=== PATIENT | male | born 1985 | race Caucasian/White ===

== ENCOUNTER 2020-12-23 16:04 | Outpatient (REF) | payer OTHER, SELFPAY | END 2020-12-23 16:05 | disposition home or self-care (01) | LOC: HO.LAB 16:04 | PROVIDERS: Visit Provider Hospitalist | DX: Z20.822 Contact with and (suspected) exposure to COVID-19 (principal) | CPT/HCPCS: U0003; U0005 ==

== ENCOUNTER 2020-12-27 11:06 | Emergency (ER) | payer OTHER, SELFPAY ==
--- NOTE | ~2020-12-27 | XR_ITS ---
EXAMINATION: XR CHEST CLINICAL INFORMATION: Covid positive COMPARISON: None TECHNIQUE: AP portable view of the chest was obtained. FINDINGS: There is a small density seen at the left base. There is obscuration of the right heart border which may be related to fat pad or parenchymal disease. No definite confluent pneumonitis is appreciated. No pneumothorax or pleural effusion. Heart upper limits of normal in size. No evidence of pulmonary edema. XR/XR chest 1V IMPRESSION: No significant confluent parenchymal disease identified. Obscuration of the right heart border as described which may be related to fat pad or region of disease. Small density seen at the left lung base.
[2020-12-27 11:33] VITALS: BP 112/77; PULSE 100; RESP 22; TEMP 37.4; O2SAT 94; BMI 38.7
--- NOTE | 2020-12-27 11:40 | ED.SOB ---
HPI - SOB/Dyspnea General Chief Complaint: Dyspnea Stated Complaint: + covid, diff breathing, chest discomfort Time Seen by Provider: 12/27/20 11:40 Source: patient Mode of arrival: ambulatory Limitations: no limitations History of Present Illness HPI Narrative: 7 days ago felt like he had the flu, he developed diarrhea, test on Wednesday, positive on Wednesday. Not sleeping, decreased urine output. Now vomiting. Low grade fever. Not vaccinated. MD elicited complaint: cough Onset (ago): week(s) Context: recent illness Timing: constant Severity: mild Associated symptoms: fever, cough and nausea/vomiting Related Data Home Medications Medication Instructions Recorded Confirmed clonazepam 1 mg tablet 1 mg PO TID PRN 12/23/20 lamotrigine 25 mg tablet 0 mg PO 12/23/20 olanzapine 15 mg tablet 15 mg PO BEDTIME 12/23/20 oxcarbazepine 150 mg tablet 0 mg PO 12/23/20 oxcarbazepine 300 mg tablet 300 mg PO TID 12/23/20 perphenazine 8 mg tablet 8 mg PO BID 12/23/20 prazosin 5 mg capsule 10 mg PO BEDTIME 12/23/20 sertraline 100 mg tablet 200 mg PO QAM 12/23/20 zolpidem 10 mg tablet 10 mg PO BEDTIME PRN 12/23/20 zolpidem 12.5 mg tablet,extended 12.5 mg PO BEDTIME PRN 12/23/20 release,multiphase Previous Rx's Medication Instructions Recorded ondansetron HCl 4 mg tablet 4 mg PO Q8H PRN #10 tab 12/27/20 (Zofran) Allergies Allergy/AdvReac Type Severity Reaction Status Date / Time codeine [CODEINE] Allergy Severe THROAT Unverified 12/23/20 11:55 SWELLING/RASH latex [LATEX] Allergy Intermediate RASH Unverified 12/23/20 11:55 Codeine Sulfate Allergy Severe rash thoat Uncoded 12/23/20 11:55 swelling Latex Allergy Intermediate rash Uncoded 12/23/20 11:55 Review of Systems Constitutional: Constitutional: Reports no additional constitutional complaints Eyes: Eyes: Reports no additional eye complaints ENT: Denies dizziness Cardiovascular: Cardiovascular: Reports no additional cardiovascular complaints Respiratory: Respiratory: Reports as per HPI Gastrointestinal: Gastrointestinal: Reports no additional gastrointestinal complaints Musculoskeletal: Musculoskeletal: Reports no additional musculoskeletal complaints Integumentary/Breasts: Skin/Breast: Denies rash Neurologic: Reports system reviewed and no additional complaints, except as documented, Denies dizziness and Denies Sensory deficit (Neuro) Psychiatric: Psychiatric: Denies anxiety [facility] Past Medical History Medical History (Updated 12/27/20 @ 13:57 by Jcarlos Smith MD) Anxiety Depression Social History Social History Alcohol intake: never Patient Tobacco Use Status: Never used Tobacco Use of substances other than those prescribed or required for medical reasons: No Advance Directives: No Advance Directives Information Provided: Yes Physical Exam Vital Signs: Vital Signs: Last Vital Signs Temp 99.4 F 12/27/20 11:33 Pulse 100 12/27/20 11:33 Resp 22 H 12/27/20 11:33 BP 112/77 12/27/20 11:33 Pulse Ox 94 12/27/20 11:33 Body Mass Index 38.7 Neuro: Sensory Exam: No Sensory deficit (Neuro) Course Reevaluation(s) Reevaluation #1: patient not hypoxic, xray does not show covid lungs, creatinine 1.65 patient is likely prerenal from not tolerating fluid. After hydration will dc home Time: 13:55 MDM - SOB/Dyspnea Lab Data Result diagrams: 12/27/20 12:40 12/27/20 12:40 Labs: Lab Results 12/27/20 12/27/20 Range/Units 12:40 12:40 WBC 5.2 (4.8-10.8) X10*3/uL RBC 5.18 (4.60-5.80) X10*6/uL Hgb 14.2 (14.0-18.0) g/dl Hct 43.9 (42-52) % MCV 84.7 (80-98) fL MCH 27.4 (27.0-33.0) pg MCHC 32.3 (31.0-36.0) g/dl RDW 13.8 (11.0-16.0) % Plt Count 172 (160-400) X10*3/uL MPV 8.8 L (9.4-12.4) fL Immature Gran % (Auto) 0.4 (0.0-0.4) % Neut % (Auto) 85.9 H (45-73) % Lymph % (Auto) 10.2 L (20-40) % [place] % (Auto) 3.5 (2-11) % Eos % (Auto) 0.0 (0-4) % Baso % (Auto) 0.0 (0-2) % Lymph # (Auto) 0.5 L (1.2-4.9) X10*3/uL [place] # (Auto) 0.2 (0.1-1.2) X10*3/uL Eos # (Auto) 0.0 (0.0-0.4) X10*3/uL Baso # (Auto) 0.0 (0.0-0.2) X10*3/uL Abs Immat Gran (auto) 0.02 (0.00-0.03) X10*3/uL Absolute Neuts (auto) 4.5 (2.0-8.3) X10*3/uL Absolute Nucleated RBC 0.000 (0.0-0.012) X10*3/uL Nucleated RBC % (auto) 0.0 (0.0-0.2) /100WBC Sodium 136 (135-145) mmol/L Potassium 3.6 (3.3-5.1) mmol/L Chloride 105 (96-108) mmol/L Carbon Dioxide 20 L (22-29) mmol/L Anion Gap 15 (12-20) BUN 20 H (9-16) mg/dL Creatinine 1.65 H (0.5-1.4) mg/dL Estim Creat Clear Calc 71.6 Estimated GFR 47 Random Glucose 108 (60-115) mg/dL Calcium 8.0 L (8.4-10.2) mg/dL Imaging Data Chest x-ray: Radiologist's impression: IMPRESSION: No significant confluent parenchymal disease identified. Obscuration of the right heart border as described which may be related to fat pad or region of disease. Small density seen at the left lung base. ? Discharge Plan Discharge Clinical Impression: COVID-19, Prerenal acute renal failure Patient Disposition: Home, Self-Care Instructions: Acute Kidney Injury (DC), COVID-19 (Coronavirus Disease 2019) (ED) Prescriptions: New ondansetron HCl [Zofran] 4 mg tablet 4 mg PO Q8H PRN (Reason: nausea and vomiting) Qty: 10 RF: 0 No Action zolpidem 10 mg tablet 10 mg PO BEDTIME PRN (Reason: insomnia) RF: 0 oxcarbazepine 300 mg tablet 300 mg PO TID RF: 0 prazosin 5 mg capsule 10 mg PO BEDTIME RF: 0 olanzapine 15 mg tablet 15 mg PO BEDTIME RF: 0 clonazepam 1 mg tablet 1 mg PO TID PRNRF: 0 sertraline 100 mg tablet 200 mg PO QAM RF: 0 zolpidem 12.5 mg tablet,ext release multiphase 12.5 mg PO BEDTIME PRNRF: 0 perphenazine 8 mg tablet 8 mg PO BID RF: 0 oxcarbazepine 150 mg tablet 0 mg PO RF: 0 lamotrigine 25 mg tablet 0 mg PO RF: 0
[2020-12-27] MEDS: ondansetron HCL 4 MG/2 ML VIAL IVPUSH (12:23)
[2020-12-27] MEDS: Ibuprofen 800 MG TABLET PO (12:23)
[2020-12-27 12:44] LABS: MANUAL DIFF FLAG NO
--- NOTE | 2020-12-27 12:45 | PC.NURSE ---
patient a&ox3, iv inserted, labs drawn, pt medicated per order, cxr performed, will continue to monitor.
[2020-12-27 12:46] LABS: Hematocrit 43.9 % (42-52); Hemoglobin 14.2 g/dl (14.0-18.0); Imm Gran Abs Auto 0.02 X10*3/uL (0.00-0.03); Imm Gran Pct Auto 0.4 % (0.0-0.4); Lymphocytes Absolute Auto 0.5 X10*3/uL (1.2-4.9); Lymphocytes Percent Auto 10.2 % (20-40); Mean Corpuscular HGB Conc 32.3 g/dl (31.0-36.0); Mean Corpuscular Hemoglobin 27.4 pg (27.0-33.0); Mean Corpuscular Volume 84.7 fL (80-98); Mean Platelet Volume 8.8 fL (9.4-12.4); Monocytes Absolute Auto 0.2 X10*3/uL (0.1-1.2); Monocytes Percent Auto 3.5 % (2-11); Neutrophils Absolute Auto 4.5 X10*3/uL (2.0-8.3); Neutrophils Percent Auto 85.9 % (45-73); Platelet Count 172 X10*3/uL (160-400); Red Blood Count 5.18 X10*6/uL (4.60-5.80); Red Cell Distribution Width 13.8 % (11.0-16.0); White Blood Count 5.2 X10*3/uL (4.8-10.8)
[2020-12-27 13:03] LABS: Anion Gap 15 (12-20); Blood Urea Nitrogen 20 mg/dL (9-16); Carbon Dioxide 20 mmol/L (22-29); Chloride 105 mmol/L (96-108); Creatinine Clr Calc Pharmacy 71.6; Estimated Glomerular Filt Rate 47; Glucose Random 108 mg/dL (60-115); Potassium 3.6 mmol/L (3.3-5.1); Sodium 136 mmol/L (135-145)
[2020-12-27 14:00] VITALS: BP 101/59; PULSE 83; RESP 18; TEMP 37; O2SAT 96
[2020-12-27 16:00] VITALS: BP 111/73; PULSE 85; RESP 18; TEMP 36.9; O2SAT 97
--- NOTE | 2020-12-27 17:32 | PC.NURSE ---
patient aox3, ivf have completed, museum technician nsr 80s, pt states he feels well enough to discharge, vss, will discharge.
== END 2020-12-27 17:43 | disposition home or self-care (01) ==
PROVIDERS: Emergency Provider Emergency Medicine; PCP Physician Assistant
DX: U07.1 COVID-19 (principal); N17.9 Acute kidney failure, unspecified
CPT/HCPCS: 36415; 71045; 80048; 85025; 96361; 96374; 99284; J2405

== ENCOUNTER 2020-12-31 10:22 | Inpatient (IN) | payer OTHER, SELFPAY ==
[2020-12-31] VITALS (11 sets, daily range): BP systolic 109–126; BP diastolic 48–78; PULSE 83–122; RESP 18–49; TEMP 36.5–37.8; O2SAT 82–100; BMI 41.9; BMI 37.3
--- NOTE | ~2020-12-31 | CT_ITS ---
EXAMINATION: CT ANGIOGRAM OF THE CHEST WITH AND WITHOUT CONTRAST (CT PULMONARY ANGIOGRAM FOR PE) CLINICAL INFORMATION: Chest pain and dyspnea COVID positive. COMPARISON: Chest radiograph done earlier today at 11:13 AM. TECHNIQUE: Prior to contrast administration, noncontrast localization images were obtained. Subsequently, multidetector volumetric imaging was performed from the thoracic inlet to below the diaphragms following the administration of 65 mL Omnipaque 350 intravenous contrast. No contrast reaction reported Sagittal, coronal, and MIP oblique sagittal reformatted images were obtained on the CT workstation, uploaded to PACS, and reviewed. This CT examination was performed using dose optimization techniques as appropriate, variously including the following: *Automated exposure control *Adjustment of mA and/or kV according to patient size (this includes techniques or standardized protocols for targeted exams where dose is matched to indication/reason for exam; i.e. extremities or head) *Use of iterative reconstruction technique Total exam dose-length product 402 mGy-cm FINDINGS: QUALITY OF STUDY/CONTRAST BOLUS: Suboptimal. PULMONARY ARTERIES: Evaluation of segmental and subsegmental pulmonary emboli is extremely limited due to motion, overlying airspace opacities and suboptimal timing of the intravenous bolus of contrast. No central pulmonary emboli are identified. THORACIC AORTA: No aneurysm or dissection. LUNG: There are extensive multifocal airspace opacities throughout both lungs. No significant pleural effusions or pneumothorax. The main airways are patent. Assessment of pulmonary nodules or masses is suboptimal given overlying airspace disease. PLEURA: No pleural effusion or pneumothorax. MEDIASTINUM: Cardiomegaly. No pericardial effusion. No evidence of septal bowing or right heart strain. Coronary calcifications. There are several enlarged mediastinal and hilar lymph nodes for example, measuring up to 1.1 cm in maximum short axis in the prevascular space on image 17 of series 6 and 1.3 cm in maximum short axis in the left hilum on image 169 of series 8. CHEST WALL/AXILLA: No axillary or internal mammary lymphadenopathy. OSSEOUS STRUCTURES: No acute or suspicious osseous abnormality. UPPER ABDOMEN: There is decreased attenuation of liver parenchyma suggesting hepatic steatosis. There is a small hiatal hernia. No reflux of contrast into the hepatic veins to suggest elevated right heart pressures. CT/CT angio chest PE protocol IMPRESSION: As above, evaluation of pulmonary emboli is significantly limited. However, accounting for these limitations, no central pulmonary emboli are identified. There are extensive multifocal airspace opacities, worrisome for multifocal pneumonia. Mediastinal and hilar lymphadenopathy is likely reactive. Hepatic steatosis. VTE: indeterminate
--- NOTE | ~2020-12-31 | XR_ITS ---
EXAMINATION: XR CHEST CLINICAL INFORMATION: Dyspnea. COMPARISON: Chest radiograph dated from 12/27/2020. TECHNIQUE: AP view of the chest was obtained. FINDINGS: There are multiple new patchy airspace opacities throughout both lungs. No pleural effusion or pneumothorax. Unchanged appearance of the cardiomediastinal silhouette. No acute osseous abnormalities. XR/XR chest 1V IMPRESSION: New multifocal airspace opacities concerning for a multifocal infection. Correlate clinically and follow-up to ensure resolution.
--- NOTE | 2020-12-31 10:27 | ECG_ITS ---
Test Reason : COVID Blood Pressure : / mmHG Vent. Rate : 109 BPM Atrial Rate : 109 BPM P-R Int : 132 ms QRS Dur : 088 ms QT Int : 330 ms P-R-T Axes : 044 -17 011 degrees QTc Int : 444 ms Sinus tachycardia RSR' or QR pattern in V1 suggests right ventricular conduction delay Nonspecific T wave abnormality Inferior leads Abnormal ECG No previous ECGs available Referred By: Della Seo Electronically Signed By:DIANNA BURR MD
[2020-12-31] MEDS: dexAMETHasone sod phosphate 4 MG/ML VIAL 6 MG IVPUSH (10:39)
--- NOTE | 2020-12-31 10:52 | ED.SOB ---
HPI - SOB/Dyspnea General Chief Complaint: Dyspnea Stated Complaint: SOB/DIRRHEA/COVID POSTIVE A WEEK AGO Time Seen by Provider: 12/31/20 10:26 Source: patient, EMS and old records reviewed Mode of arrival: EMS Limitations: no limitations History of Present Illness HPI Narrative: 35 yo male with anxiety and depression unvaccinated reports starting to feel ill on 12/22 tested positive on 12/23 - seen here 12/27 for weakness/diarrhea Cr 1.65, CXR mild RLL atelectasis no hypoxia since then worsening dyspnea, diarrhea, fatigue and overall he is not feeling better. He has not been on any treatments. Found to be 60% on RA with EMS. He c/o chest tightness and pain. MD elicited complaint: shortness of breath (diarrhea, COVID + as of 12/23 symptoms started on 12/22) Pertinent past history: other (COVID + 12/23) Onset (ago): day(s) (10) Context: recent illness Timing: progressively worsening Severity: severe Exacerbating factors: exertion, coughing and inspiration Relieving factors: oxygen and rest Known history of: other (COVID +) Associated symptoms: chest pain, pain with inspiration, cough, nausea/vomiting, lightheadedness and other (diarrhea) Treatment prior to arrival: oxygen (sat 60% on EMS arrival responded to NRB up to 97%) Related Data Home Medications Medication Instructions Recorded Confirmed clonazepam 1 mg tablet 1 mg PO TID PRN 12/23/20 12/31/20 olanzapine 15 mg tablet 15 mg PO BEDTIME 12/23/20 12/31/20 oxcarbazepine 300 mg tablet 300 mg PO DAILY 12/23/20 12/31/20 perphenazine 8 mg tablet 8 mg PO BID 12/23/20 12/31/20 prazosin 5 mg capsule 10 mg PO BEDTIME 12/23/20 12/31/20 sertraline 100 mg tablet 200 mg PO DAILY 12/23/20 12/31/20 zolpidem 10 mg tablet 10 mg PO BEDTIME PRN 12/23/20 12/31/20 oxcarbazepine 300 mg tablet 600 mg PO BEDTIME 12/31/20 12/31/20 Previous Rx's Medication Instructions Recorded ondansetron HCl 4 mg tablet 4 mg PO Q8H PRN #10 tab 12/27/20 (Zofran) Allergies Allergy/AdvReac Type Severity Reaction Status Date / Time codeine [CODEINE] Allergy Severe THROAT Verified 12/31/20 10:37 SWELLING/RASH latex [LATEX] Allergy Intermediate RASH Verified 12/31/20 10:37 Codeine Sulfate Allergy Severe rash thoat Uncoded 12/23/20 11:55 swelling Latex Allergy Intermediate rash Uncoded 12/23/20 11:55 Review of Systems Review of Systems: Constitutional : No Fever, pos Chills, pos fatigue, pos malaise ENT/Mouth : No sore throat, No Rhinorrhea, No Swallowing Difficulty Eyes: No Eye Pain, No Swelling, No Redness Cardiovascular : pos Chest Pain, positive SOB, No Orthopnea, no Edema Respiratory : pos Cough, No Sputum, No Wheezing, positive dyspnea Gastrointestinal : No Nausea, No Vomiting, pos Diarrhea, No abdominal Pain, No Hematochezia, No Melena Genitourinary : No Dysuria, No Urinary Frequency, No Hematuria Musculoskeletal : No joint pain, pos Myalgias Skin : No Skin Lesions, No rash Neuro : pos Weakness, No Numbness, pos Dizziness, No Headache Psych : No Anxiety/Panic, No Depression Heme/Lymph: No Bruising, No Lymphadenopathy Endocrine : No Polyuria, No Polydipsia All other systems reviewed and are negative PMFSH Past Medical History Attestation statement: The following information was validated with the patient. Medical History Anxiety Depression Social History Social History (Updated 12/31/20 @ 11:27 by Della Seo DO) Alcohol intake: never Patient Tobacco Use Status: Never used Tobacco Use of substances other than those prescribed or required for medical reasons: No Advance Directives: No Advance Directives Information Provided: No Physical Exam Vital Signs: Vital Signs: Last Vital Signs Temp 100.1 F 12/31/20 13:16 Pulse 107 H 12/31/20 13:16 Resp 33 H 12/31/20 13:16 BP 126/73 12/31/20 13:16 Pulse Ox 96 12/31/20 13:16 Body Mass Index 41.9 Appearance: Alert. Oriented X3. Moderate acute distress. Eyes: Pupils equal, round and reactive to light. ENT: Pharynx dry MM Neck: Normal inspection. Neck supple. CVS: tachycardic heart rate and rhythm. Pulses normal. Respiratory: Moderate respiratory distress - retractions and tachypnea/splinting. Breath sounds decreased throughout with rhonchi and rales Abdomen: Soft and nontender. Skin: Skin warm and dry. pale skin color. Normal skin turgor. Extremities: No lower extremity edema. No calf ttp Neuro: Oriented X 3. No motor deficit. No sensory deficit. Course Course Course Narrative: doing well with high nader ICU aware - not an ICU candidate at time improved on hi ander O2 MDM - SOB/Dyspnea MDM Narrative Medical decision making narrative: 35 yo male with anxiety depression nonsmoker no prior asthma here with 10 days of COVID symptoms comes in with c/o dyspnea, weakness, diarrhea and found to be in 60s - labs, cultures, high flow O2, CTA for PE, IV steroids, empiric abx, planned admit. Lab Data Result diagrams: 12/31/20 10:44 12/31/20 10:44 Labs: Lab Results 12/31/20 12/31/20 12/31/20 Range/Units 10:44 10:44 10:44 WBC 7.6 (4.8-10.8) X10*3/uL RBC 4.96 (4.60-5.80) X10*6/uL Hgb 13.8 L (14.0-18.0) g/dl Hct 40.9 L (42.0-52.0) % MCV 82.5 (80.0-98.0) fL MCH 27.8 (27.0-33.0) pg MCHC 33.7 (31.0-36.0) g/dl RDW 13.6 (11.0-16.0) % Plt Count 352 (160-400) X10*3/uL MPV 8.7 L (9.4-12.4) fL Immature Gran % (Auto) 1.2 H (0.0-0.4) % Neut % (Auto) 88.1 H (45-73) % Lymph % (Auto) 6.6 L (20-40) % [place] % (Auto) 4.0 (2-11) % Eos % (Auto) 0.0 (0-4) % Baso % (Auto) 0.1 (0-2) % Lymph # (Auto) 0.5 L (1.2-4.9) X10*3/uL [place] # (Auto) 0.3 (0.1-1.2) X10*3/uL Eos # (Auto) 0.0 (0.0-0.4) X10*3/uL Baso # (Auto) 0.0 (0.0-0.2) X10*3/uL Abs Immat Gran (auto) 0.09 H (0.00-0.03) X10*3/uL Absolute Neuts (auto) 6.68 (2.0-8.3) x10*3/uL Absolute Nucleated RBC 0.000 (0.0-0.012) X10*3/uL Nucleated RBC % (auto) 0.0 (0.0-0.2) /100WBC PT (9.9-13.0) SEC INR (0.9-1.1) APTT (24.1-38.0) SEC D-Dimer NG/ML VBG pH (7.32-7.43) VBG pCO2 mmHg VBG pO2 mmHg VBG HCO3 (22-26) mmol/L VBG O2 Saturation % VBG Base Excess mmol/L Sodium 136 (135-145) mmol/L Potassium 3.6 (3.3-5.1) mmol/L Chloride 97 (96-108) mmol/L Carbon Dioxide 25 (22-29) mmol/L Anion Gap 18 (12-20) BUN 8 L D (9-16) mg/dL Creatinine 1.07 (0.5-1.4) mg/dL Estim Creat Clear Calc 115.3 Estimated GFR > 60 POC Glucose (60-115) mg/dL Random Glucose 105 (60-115) mg/dL Lactic Acid (0.5-2.0) mmol/L Calcium 7.7 L (8.4-10.2) mg/dL Magnesium 1.9 (1.6-2.6) mg/dL Ferritin Total Bilirubin 0.4 (0.0-1.0) mg/dL Direct Bilirubin 0.2 (0.0-0.5) mg/dL AST 80 H (5-37) U/L ALT 63 H (0-40) U/L Alkaline Phosphatase 83 (39-117) U/L Lactate Dehydrogenase 811 H (118-273) U/L Troponin I High Sens (<3.5-35.0) ng/L C-Reactive Protein 19.74 H (< or = 0.50) mg/dL Total Protein 6.9 (6.5-8.0) g/dL Albumin 3.7 (3.5-5.0) g/dL Procalcitonin ng/mL COVID-19 ([facility]) Negative (Negative) COVID-19 Clin Com See Note 12/31/20 12/31/20 12/31/20 Range/Units 10:44 10:44 10:44 WBC (4.8-10.8) X10*3/uL RBC (4.60-5.80) X10*6/uL Hgb (14.0-18.0) g/dl Hct (42.0-52.0) % MCV (80.0-98.0) fL MCH (27.0-33.0) pg MCHC (31.0-36.0) g/dl RDW (11.0-16.0) % Plt Count (160-400) X10*3/uL MPV (9.4-12.4) fL Immature Gran % (Auto) (0.0-0.4) % Neut % (Auto) (45-73) % Lymph % (Auto) (20-40) % [place] % (Auto) (2-11) % Eos % (Auto) (0-4) % Baso % (Auto) (0-2) % Lymph # (Auto) (1.2-4.9) X10*3/uL [place] # (Auto) (0.1-1.2) X10*3/uL Eos # (Auto) (0.0-0.4) X10*3/uL Baso # (Auto) (0.0-0.2) X10*3/uL Abs Immat Gran (auto) (0.00-0.03) X10*3/uL Absolute Neuts (auto) (2.0-8.3) x10*3/uL Absolute Nucleated RBC (0.0-0.012) X10*3/uL Nucleated RBC % (auto) (0.0-0.2) /100WBC PT 14.0 H (9.9-13.0) SEC INR 1.2 H (0.9-1.1) APTT 32.7 (24.1-38.0) SEC D-Dimer 478 NG/ML VBG pH (7.32-7.43) VBG pCO2 mmHg VBG pO2 mmHg VBG HCO3 (22-26) mmol/L VBG O2 Saturation % VBG Base Excess mmol/L Sodium (135-145) mmol/L Potassium (3.3-5.1) mmol/L Chloride (96-108) mmol/L Carbon Dioxide (22-29) mmol/L Anion Gap (12-20) BUN (9-16) mg/dL Creatinine (0.5-1.4) mg/dL Estim Creat Clear Calc Estimated GFR POC Glucose (60-115) mg/dL Random Glucose (60-115) mg/dL Lactic Acid 1.5 (0.5-2.0) mmol/L Calcium (8.4-10.2) mg/dL Magnesium (1.6-2.6) mg/dL Ferritin Cancelled Total Bilirubin (0.0-1.0) mg/dL Direct Bilirubin (0.0-0.5) mg/dL AST (5-37) U/L ALT (0-40) U/L Alkaline Phosphatase (39-117) U/L Lactate Dehydrogenase (118-273) U/L Troponin I High Sens (<3.5-35.0) ng/L C-Reactive Protein (< or = 0.50) mg/dL Total Protein (6.5-8.0) g/dL Albumin (3.5-5.0) g/dL Procalcitonin ng/mL COVID-19 ([facility]) (Negative) COVID-19 Clin Com 12/31/20 12/31/20 12/31/20 Range/Units 10:44 10:44 10:54 WBC (4.8-10.8) X10*3/uL RBC (4.60-5.80) X10*6/uL Hgb (14.0-18.0) g/dl Hct (42.0-52.0) % MCV (80.0-98.0) fL MCH (27.0-33.0) pg MCHC (31.0-36.0) g/dl RDW (11.0-16.0) % Plt Count (160-400) X10*3/uL MPV (9.4-12.4) fL Immature Gran % (Auto) (0.0-0.4) % Neut % (Auto) (45-73) % Lymph % (Auto) (20-40) % [place] % (Auto) (2-11) % Eos % (Auto) (0-4) % Baso % (Auto) (0-2) % Lymph # (Auto) (1.2-4.9) X10*3/uL [place] # (Auto) (0.1-1.2) X10*3/uL Eos # (Auto) (0.0-0.4) X10*3/uL Baso # (Auto) (0.0-0.2) X10*3/uL Abs Immat Gran (auto) (0.00-0.03) X10*3/uL Absolute Neuts (auto) (2.0-8.3) x10*3/uL Absolute Nucleated RBC (0.0-0.012) X10*3/uL Nucleated RBC % (auto) (0.0-0.2) /100WBC PT (9.9-13.0) SEC INR (0.9-1.1) APTT (24.1-38.0) SEC D-Dimer NG/ML VBG pH 7.48 H (7.32-7.43) VBG pCO2 38 mmHg VBG pO2 51 mmHg VBG HCO3 28 H (22-26) mmol/L VBG O2 Saturation 78.0 % VBG Base Excess 4.9 mmol/L Sodium (135-145) mmol/L Potassium (3.3-5.1) mmol/L Chloride (96-108) mmol/L Carbon Dioxide (22-29) mmol/L Anion Gap (12-20) BUN (9-16) mg/dL Creatinine (0.5-1.4) mg/dL Estim Creat Clear Calc Estimated GFR POC Glucose (60-115) mg/dL Random Glucose (60-115) mg/dL Lactic Acid (0.5-2.0) mmol/L Calcium (8.4-10.2) mg/dL Magnesium (1.6-2.6) mg/dL Ferritin Total Bilirubin (0.0-1.0) mg/dL Direct Bilirubin (0.0-0.5) mg/dL AST (5-37) U/L ALT (0-40) U/L Alkaline Phosphatase (39-117) U/L Lactate Dehydrogenase (118-273) U/L Troponin I High Sens 10.4 (<3.5-35.0) ng/L C-Reactive Protein (< or = 0.50) mg/dL Total Protein (6.5-8.0) g/dL Albumin (3.5-5.0) g/dL Procalcitonin 0.39 ng/mL COVID-19 ([facility]) (Negative) COVID-19 Clin Com 12/31/20 Range/Units 11:17 WBC (4.8-10.8) X10*3/uL RBC (4.60-5.80) X10*6/uL Hgb (14.0-18.0) g/dl Hct (42.0-52.0) % MCV (80.0-98.0) fL MCH (27.0-33.0) pg MCHC (31.0-36.0) g/dl RDW (11.0-16.0) % Plt Count (160-400) X10*3/uL MPV (9.4-12.4) fL Immature Gran % (Auto) (0.0-0.4) % Neut % (Auto) (45-73) % Lymph % (Auto) (20-40) % [place] % (Auto) (2-11) % Eos % (Auto) (0-4) % Baso % (Auto) (0-2) % Lymph # (Auto) (1.2-4.9) X10*3/uL [place] # (Auto) (0.1-1.2) X10*3/uL Eos # (Auto) (0.0-0.4) X10*3/uL Baso # (Auto) (0.0-0.2) X10*3/uL Abs Immat Gran (auto) (0.00-0.03) X10*3/uL Absolute Neuts (auto) (2.0-8.3) x10*3/uL Absolute Nucleated RBC (0.0-0.012) X10*3/uL Nucleated RBC % (auto) (0.0-0.2) /100WBC PT (9.9-13.0) SEC INR (0.9-1.1) APTT (24.1-38.0) SEC D-Dimer NG/ML VBG pH (7.32-7.43) VBG pCO2 mmHg VBG pO2 mmHg VBG HCO3 (22-26) mmol/L VBG O2 Saturation % VBG Base Excess mmol/L Sodium (135-145) mmol/L Potassium (3.3-5.1) mmol/L Chloride (96-108) mmol/L Carbon Dioxide (22-29) mmol/L Anion Gap (12-20) BUN (9-16) mg/dL Creatinine (0.5-1.4) mg/dL Estim Creat Clear Calc Estimated GFR POC Glucose 106 (60-115) mg/dL Random Glucose (60-115) mg/dL Lactic Acid (0.5-2.0) mmol/L Calcium (8.4-10.2) mg/dL Magnesium (1.6-2.6) mg/dL Ferritin Total Bilirubin (0.0-1.0) mg/dL Direct Bilirubin (0.0-0.5) mg/dL AST (5-37) U/L ALT (0-40) U/L Alkaline Phosphatase (39-117) U/L Lactate Dehydrogenase (118-273) U/L Troponin I High Sens (<3.5-35.0) ng/L C-Reactive Protein (< or = 0.50) mg/dL Total Protein (6.5-8.0) g/dL Albumin (3.5-5.0) g/dL Procalcitonin ng/mL COVID-19 ([facility]) (Negative) COVID-19 Clin Com ECG Data Attestation: I personally reviewed and interpreted this ECG as follows: ECG interpretation date: 12/31/20 ECG interpretation time: 11:35 Interpretation: Rate: 109 Rhythm: sinus tach [place]: left Normal P waves. Normal MARIANELA. Normal QRS complex. ST T wave : normal no KERI qTC: normal prior studies: no acute ischemia The study has been interpreted contemporaneously by me. . Critical Care Time Critical Care Time Critical Care Time: Yes Total Critical Care Time: 60 Attestation: O2 supplementation, medical consult, antibiotics, reassessments I attest to this time spent taking care of the patient Discharge Plan Discharge Clinical Impression: COVID-19, Hypoxia, Multifocal pneumonia, Acute respiratory distress Patient Disposition: Admitted As Inpatient Prescriptions: No Action oxcarbazepine 300 mg tablet 600 mg PO BEDTIME RF: 0 ondansetron HCl [Zofran] 4 mg tablet 4 mg PO Q8H PRN (Reason: nausea and vomiting) Qty: 10 RF: 0 zolpidem 10 mg tablet 10 mg PO BEDTIME PRN (Reason: insomnia) RF: 0 oxcarbazepine 300 mg tablet 300 mg PO DAILY RF: 0 prazosin 5 mg capsule 10 mg PO BEDTIME RF: 0 olanzapine 15 mg tablet 15 mg PO BEDTIME RF: 0 clonazepam 1 mg tablet 1 mg PO TID PRN (Reason: Anxiety) RF: 0 sertraline 100 mg tablet 200 mg PO DAILY RF: 0 perphenazine 8 mg tablet 8 mg PO BID RF: 0
--- NOTE | 2020-12-31 10:52 | PHA.MEDREC ---
Pharmacy Consult ? Medication Reconciliation Pharmacy has completed the medication reconciliation.
[2020-12-31 10:53] LABS: MANUAL DIFF FLAG NO
[2020-12-31 10:55] LABS: Basophils Percent Auto 0.1 % (0-2); Hematocrit 40.9 % (42.0-52.0); Hemoglobin 13.8 g/dl (14.0-18.0); Imm Gran Abs Auto 0.09 X10*3/uL (0.00-0.03); Imm Gran Pct Auto 1.2 % (0.0-0.4); Lymphocytes Absolute Auto 0.5 X10*3/uL (1.2-4.9); Lymphocytes Percent Auto 6.6 % (20-40); Mean Corpuscular HGB Conc 33.7 g/dl (31.0-36.0); Mean Corpuscular Hemoglobin 27.8 pg (27.0-33.0); Mean Corpuscular Volume 82.5 fL (80.0-98.0); Mean Platelet Volume 8.7 fL (9.4-12.4); Monocytes Absolute Auto 0.3 X10*3/uL (0.1-1.2); Neutrophils Absolute Auto 6.68 x10*3/uL (2.0-8.3); Neutrophils Percent Auto 88.1 % (45-73); Platelet Count 352 X10*3/uL (160-400); Red Blood Count 4.96 X10*6/uL (4.60-5.80); Red Cell Distribution Width 13.6 % (11.0-16.0); White Blood Count 7.6 X10*3/uL (4.8-10.8)
[2020-12-31 11:00] LABS: VBG Base Excess 4.9 mmol/L; VBG HCO3 28 mmol/L (22-26); VBG pCO2 38 mmHg; VBG pH 7.48 (7.32-7.43); VBG pO2 51 mmHg
--- NOTE | 2020-12-31 11:00 | PC.NURSE ---
pt reports he tested Covid + last week, was seen here in the ed for N/V/D a few days later. today he returns with worsening sob/cough/pleuritic chest pain with both respirations and cough. he denies headache/dizziness. per ems pt's O2 sat was mid 80s on R/A he was placed on a non-rebreather during transport, his O2 sat went up to 95-99% with the non-rebreather. pt was placed on high flow by respiratory therapist on arrival to the ED satting at 99-100%. Pt states everyone in his house is sick with COVID because his kids were exposed at school. Pt is unvaccinated. He denies fever but states he was very diaphoretic when the ambulance picked him up today. Pt does not take any prescriptive meds, he reports he is normally a healthy person. pt's vss. will continue to monitor.
[2020-12-31 11:01] LABS: Venous Blood Gas Refer to POC result
[2020-12-31 11:01] LABS: INTERNATIONAL NORM RATIO 1.2 (0.9-1.1)
[2020-12-31 11:04] LABS: D Dimer 478 NG/ML; Partial Thromboplastin Time 32.7 SEC (24.1-38.0)
[2020-12-31 11:13] LABS: Lactic Acid 1.5 mmol/L (0.5-2.0)
--- NOTE | 2020-12-31 11:15 | PC.NURSE ---
pt's PT, INR elevated, Heparin held. Dr. Nicholson aware. Pt remains on high-flow, O2 sat 99-100%. pt continues to c/o of pleuritic chest pain, he describes it as chest tightness . vss. will continue to monitor
[2020-12-31 11:16] LABS: COVID-19 Test Negative (Negative)
[2020-12-31 11:17] LABS: Troponin-I High Sensitivity 10.4 ng/L (<3.5-35.0)
[2020-12-31 11:21] LABS: Alanine Aminotransferase 63 U/L (0-40); Albumin Level 3.7 g/dL (3.5-5.0); Alkaline Phosphatase 83 U/L (39-117); Anion Gap 18 (12-20); Aspartate Amino Transferase 80 U/L (5-37); Bilirubin Direct 0.2 mg/dL (0.0-0.5); Bilirubin Total 0.4 mg/dL (0.0-1.0); Blood Urea Nitrogen 8 mg/dL (9-16); C Reactive Protein 19.74 mg/dL (< or = 0.50); Calcium 7.7 mg/dL (8.4-10.2); Carbon Dioxide 25 mmol/L (22-29); Chloride 97 mmol/L (96-108); Creatinine Clr Calc Pharmacy 115.3; Estimated Glomerular Filt Rate > 60; Glucose Random 105 mg/dL (60-115); Lactate Dehydrogenase 811 U/L (118-273); Magnesium 1.9 mg/dL (1.6-2.6); Potassium 3.6 mmol/L (3.3-5.1); Sodium 136 mmol/L (135-145); Total Protein 6.9 g/dL (6.5-8.0)
[2020-12-31 11:22] LABS: Glucose, Whole Blood 106 mg/dL (60-115)
[2020-12-31] MEDS: cefEPime HCl 2 GM in 0.9 % Sodium Chloride 50 ML IV ×2 (11:35→22:50)
[2020-12-31 11:41] LABS: Procalcitonin 0.39 ng/mL
--- NOTE | 2020-12-31 12:00 | PC.NURSE ---
chest x-ray and chest cta done. pt remains on high-flow at 50 LPM, O2 sat 99-100%, vss, pt pending admission. no complaints. will continue to monitor.
[2020-12-31] MEDS: vancomycin HCL 1,500 MG in 0.9 % Sodium Chloride 500 ML 333.33 MG IV (12:14)
[2020-12-31] MEDS: iohexoL 350 MG/ML 100 ML INFUS..BTL IV (12:56)
--- NOTE | 2020-12-31 14:00 | PC.NURSE ---
this engineering writer spoke with pt's Mckenna with pt's permission. Mckenna was updated on pt's pending admission.
[2020-12-31] MEDS: Acetaminophen 325 MG TABLET 650 MG PO (14:21)
[2020-12-31] MEDS: Ascorbic Acid 500 MG TABLET PO (16:49)
[2020-12-31] MEDS: 0.9 % Sodium Chloride Flush 3 ML SYRINGE IVFLUSH (16:51)
--- NOTE | 2020-12-31 18:23 | PC.NURSE ---
report given to JESSICA Ordaz. pt will be transported to room 460 by registered account administrator.
--- NOTE | 2020-12-31 18:45 | PC.NURSE ---
this teletypewriter operator gave report to JESSICA Ordaz however pt no longer assigned to room 460, will pass on to oncoming nurse. vss.
--- NOTE | 2020-12-31 19:07 | PM.IMHP ---
History of Present Illness Date of Service: 12/31/20 Attending physician on admission: Avery Linares Chief Complaint: Acute hypoxemic respiratory failure sec to covid. 35-year-old male came to the hospital because of worsening shortness of breath as per the patient he had outpatient COVID test done last week which was positive and subsequently was falling short of breath and came to the hospital to 3 days back and that time was not requiring oxygen so was sent back home, subsequently his shortness of breath worsening has some cough -came to the hospital. He says that he has these symptoms from week week and half, he never got COVID vaccine. Denies any chest pain or nausea vomiting or abdominal pain but has diarrhea. Denies chills or weakness or numbness or headache Has mild tachycardia and tachypnea. He says his shortness of breath slightly improving since he came to the hospital-received dexamethasone, antibiotics including Vanco and cefepime, acetaminophen. Lab imaging EKG : Has lymphopenia, no leukocytosis, VBG: PH is 7.48, pCO2 38, PO2 is 51 Chemistry landon BUN is 8 creatinine 1.075 fingersticks is 106 Low-grade fever Elevated AST and ALT in 60-80 range range Elevated LDH 811 and C reactive protein is 19.7 troponin 10.4 EKG shows sinus bradycardia no ST changes cta: Negative for any central pulmonary embolism, mediastinal and hilar lymphadenopathy probably reactive. Review of Systems Review of Systems: As above. Yes all other systems are reviewed and are negative [facility] Medical History Anxiety Depression Pertinent family history: He said his daughter was sick 1st with COVID and then subsequently whole family had probably COVID infection Social History Alcohol intake: never Patient Tobacco Use Status: Never used Tobacco Use of substances other than those prescribed or required for medical reasons: No Advance Directives: No Advance Directives Information Provided: No Meds Allergies Allergy/AdvReac Type Severity Reaction Status Date / Time codeine [CODEINE] Allergy Severe THROAT Verified 12/31/20 10:37 SWELLING/RASH latex [LATEX] Allergy Intermediate RASH Verified 12/31/20 10:37 Codeine Sulfate Allergy Severe rash thoat Uncoded 12/23/20 11:55 swelling Latex Allergy Intermediate rash Uncoded 12/23/20 11:55 Active Medications: Current Medications Ascorbic Acid (Ascorbic Acid 500 Mg Tablet) 500 mg PO DAILY [facility] Last Admin: 12/31/20 16:49 Dose: 500 mg Documented by: Dexamethasone Sodium Phosphate (Dexamethasone Sod Phosphate 4 Mg/Ml Vial) 6 mg IVPUSH DAILY [facility] Enoxaparin Sodium (Enoxaparin Sodium 40 Mg/0.4 Ml Syringe) 40 mg SUBCUT Q24H [facility] Famotidine (Famotidine 20 Mg Tablet) 20 mg PO BID [facility] Cefepime HCl 2 gm/ Sodium (Chloride) 50 mls @ 100 mls/hr IV Q12H [facility] Vancomycin HCl 1,250 mg/ (Sodium Chloride) 250 mls @ 166.667 mls/hr IV Q12H [facility] Pharmacy Consult (Consult Rx Perform Med Rec) 1 each MISCELLANE ONCE PRN PRN Reason: Consult order Pharmacy Consult (Consult Rx Vancomycin Dosing) 1 each MISCELLANE DAILY PRN PRN Reason: Consult order Sodium Chloride (0.9 % Sodium Chloride Flush 3 Ml Syringe) 3 ml IVFLUSH QSHIFT [facility] Last Admin: 12/31/20 16:51 Dose: 3 ml Documented by: Zinc Sulfate (Zinc Sulfate 220 Mg Capsule) 220 mg PO DAILY [facility] Home Medications Medication Instructions Recorded Confirmed Last Taken Type clonazepam 1 mg tablet 1 mg PO TID PRN 12/23/20 12/31/20 Unknown History olanzapine 15 mg tablet 15 mg PO BEDTIME 12/23/20 12/31/20 Unknown History oxcarbazepine 300 mg tablet 300 mg PO DAILY 12/23/20 12/31/20 Unknown History perphenazine 8 mg tablet 8 mg PO BID 12/23/20 12/31/20 Unknown History prazosin 5 mg capsule 10 mg PO BEDTIME 12/23/20 12/31/20 Unknown History sertraline 100 mg tablet 200 mg PO DAILY 12/23/20 12/31/20 Unknown History zolpidem 10 mg tablet 10 mg PO BEDTIME PRN 12/23/20 12/31/20 Unknown History oxcarbazepine 300 mg tablet 600 mg PO BEDTIME 12/31/20 12/31/20 Unknown History Physical Exam Vital Signs and Narrative: Vital Signs: Last Vital Signs Temp 99 F 12/31/20 16:26 Pulse 94 12/31/20 16:26 Resp 29 H 12/31/20 16:55 BP 110/48 L 12/31/20 16:26 Pulse Ox 97 12/31/20 16:26 Body Mass Index 41.9 Appearance: Alert.? Oriented X3.? not in distress.? Eyes: Pupils equal, round and reactive to light.? Sclera nonicteric.? ENT: Pharynx normal.? Moist mucous membranes. cvs: rrr, [id number] res: Air entry fair, diminished at bases, mild rhonchi. abd: no rebound or guarding ,nt, bs present. ext pulses present , no cyanosis ,Gait well balanced well coordinated. neuro: axo3 , nonfocal. Results Labs CBC and Chem 7: 12/31/20 10:44 12/31/20 10:44 Labs: Laboratory Results - last 24 hr 12/31/20 12/31/20 12/31/20 10:44 10:44 10:44 MCV 82.5 MCH 27.8 MCHC 33.7 RDW 13.6 Plt Count 352 MPV 8.7 L Immature Gran % (Auto) 1.2 H Neut % (Auto) 88.1 H Lymph % (Auto) 6.6 L Shannon % (Auto) 4.0 Eos % (Auto) 0.0 Baso % (Auto) 0.1 Lymph # (Auto) 0.5 L Shannon # (Auto) 0.3 Eos # (Auto) 0.0 Baso # (Auto) 0.0 Abs Immat Gran (auto) 0.09 H Absolute Neuts (auto) 6.68 Absolute Nucleated RBC 0.000 Nucleated RBC % (auto) 0.0 PT INR APTT D-Dimer VBG pH VBG pCO2 VBG pO2 VBG HCO3 VBG O2 Saturation VBG Base Excess Anion Gap 18 Estim Creat Clear Calc 115.3 Estimated GFR > 60 POC Glucose Random Glucose 105 Lactic Acid Calcium 7.7 L Magnesium 1.9 Ferritin Total Bilirubin 0.4 Direct Bilirubin 0.2 AST 80 H ALT 63 H Alkaline Phosphatase 83 Lactate Dehydrogenase 811 H Troponin I High Sens C-Reactive Protein 19.74 H Total Protein 6.9 Albumin 3.7 Procalcitonin COVID-19 ([facility]) Negative COVID-19 Clin Com See Note 12/31/20 12/31/20 12/31/20 10:44 10:44 10:44 MCV MCH MCHC RDW Plt Count MPV Immature Gran % (Auto) Neut % (Auto) Lymph % (Auto) Shannon % (Auto) Eos % (Auto) Baso % (Auto) Lymph # (Auto) Shannon # (Auto) Eos # (Auto) Baso # (Auto) Abs Immat Gran (auto) Absolute Neuts (auto) Absolute Nucleated RBC Nucleated RBC % (auto) PT 14.0 H INR 1.2 H APTT 32.7 D-Dimer 478 VBG pH VBG pCO2 VBG pO2 VBG HCO3 VBG O2 Saturation VBG Base Excess Anion Gap Estim Creat Clear Calc Estimated GFR POC Glucose Random Glucose Lactic Acid 1.5 Calcium Magnesium Ferritin Cancelled Total Bilirubin Direct Bilirubin AST ALT Alkaline Phosphatase Lactate Dehydrogenase Troponin I High Sens C-Reactive Protein Total Protein Albumin Procalcitonin COVID-19 ([facility]) COVID-19 Clin Com 12/31/20 12/31/20 12/31/20 10:44 10:44 10:54 MCV MCH MCHC RDW Plt Count MPV Immature Gran % (Auto) Neut % (Auto) Lymph % (Auto) Shannon % (Auto) Eos % (Auto) Baso % (Auto) Lymph # (Auto) Shannon # (Auto) Eos # (Auto) Baso # (Auto) Abs Immat Gran (auto) Absolute Neuts (auto) Absolute Nucleated RBC Nucleated RBC % (auto) PT INR APTT D-Dimer VBG pH 7.48 H VBG pCO2 38 VBG pO2 51 VBG HCO3 28 H VBG O2 Saturation 78.0 VBG Base Excess 4.9 Anion Gap Estim Creat Clear Calc Estimated GFR POC Glucose Random Glucose Lactic Acid Calcium Magnesium Ferritin Total Bilirubin Direct Bilirubin AST ALT Alkaline Phosphatase Lactate Dehydrogenase Troponin I High Sens 10.4 C-Reactive Protein Total Protein Albumin Procalcitonin 0.39 COVID-19 ([facility]) COVID-19 Clin Com 12/31/20 11:17 MCV MCH MCHC RDW Plt Count MPV Immature Gran % (Auto) Neut % (Auto) Lymph % (Auto) Shannon % (Auto) Eos % (Auto) Baso % (Auto) Lymph # (Auto) Shannon # (Auto) Eos # (Auto) Baso # (Auto) Abs Immat Gran (auto) Absolute Neuts (auto) Absolute Nucleated RBC Nucleated RBC % (auto) PT INR APTT D-Dimer VBG pH VBG pCO2 VBG pO2 VBG HCO3 VBG O2 Saturation VBG Base Excess Anion Gap Estim Creat Clear Calc Estimated GFR POC Glucose 106 Random Glucose Lactic Acid Calcium Magnesium Ferritin Total Bilirubin Direct Bilirubin AST ALT Alkaline Phosphatase Lactate Dehydrogenase Troponin I High Sens C-Reactive Protein Total Protein Albumin Procalcitonin COVID-19 ([facility]) COVID-19 Clin Com Imaging Radiologist's Impressions: Impressions Chest X-Ray 12/31/20 10:28 IMPRESSION: New multifocal airspace opacities concerning for a multifocal infection. Correlate clinically and follow-up to ensure resolution. Chest CTA 12/31/20 11:28 IMPRESSION: As above, evaluation of pulmonary emboli is significantly limited. However, accounting for these limitations, no central pulmonary emboli are identified. There are extensive multifocal airspace opacities, worrisome for multifocal pneumonia. Mediastinal and hilar lymphadenopathy is likely reactive. Hepatic steatosis. VTE: indeterminate Assessment and Plan (1) Fever: Status: Acute (2) Body aches: Status: Acute (3) Headache: Status: Acute (4) COVID-19: Status: Acute (5) Hypoxia: Status: Acute (6) Multifocal pneumonia: Status: Acute 1. Acute hypoxemic respiratory failure secondary to possible COVID pneumonia. Repeated COVID negative but he was positive for COVID pcr on 12/23 Started on dexamethasone, high-flow oxygen, zinc, Pepcid CT and negative for PE Id evaluation for remdesivir, also added pulmonary elevation since has acute hypoxemic respiratory failure. Procalcitonin level is slightly elevated, blood culture cultures sent. Continue IV broad-spectrum antibiotic coverage for now. Diarrhea probably related to COVID, will add stool studies . 2. Morbid obesity discussed with the patient in detail encouraged for weight loss. 3. DVT prophylaxis with Lovenox Above management discussed with the patient in detail length including antibiotic use and oxygen and respiratory failure management he understand and in agreement with the above plan patient is full code. Quality Stroke Does the patient have a stroke diagnosis?: No VTE Prior VTE?: No VTE Risk Level:: Medical - moderate - high VTE Device Contraindication: N/A - Device Ordered VTE Drug Contraindication: N/A - Med Ordered
--- NOTE | 2020-12-31 19:39 | PC.NURSE ---
This RN contacting [facility] regarding new room assignment. Per nursing prison guard supervisor, room assignment changed to 483. Per previous RN, report given to Danae. This RN confirming with IM, no need to give a report to another RN due to room change. Danae will remain primary RN. Per Danae, room not ready, [facility] to call when pt is able to be transported to floor. Mickey, RN contacting [facility] regarding transport as pt is currently on high flow. Per Dejan, to transport on a NRB when ready.
[2020-12-31] MEDS: Enoxaparin Sodium 40 MG/0.4 ML SYRINGE SUBCUT (19:40)
[2020-12-31 20:06] LABS: Adenovirus PCR Not Detected (Not Detect.); Bordetella parapertussis PCR Not Detected (Not Detect.); Bordetella pertussis PCR Not Detected (Not Detect.); Chlamydia pneumoniae PCR Not Detected (Not Detect.); Coronavirus 229E PCR Not Detected (Not Detect.); Coronavirus HKU1 PCR Not Detected (Not Detect.); Coronavirus NL63 PCR Not Detected (Not Detect.); Coronavirus OC43 PCR Not Detected (Not Detect.); Human metapneumovirus PCR Not Detected (Not Detect.); Influenza A PCR Not Detected (Not Detect.); Influenza B PCR Not Detected (Not Detect.); Mycoplasma pneumoniae PCR Not Detected (Not Detect.); Parainfluenza 1 PCR Not Detected (Not Detect.); Parainfluenza 2 PCR Not Detected (Not Detect.); Parainfluenza 3 PCR Not Detected (Not Detect.); Parainfluenza 4 PCR Not Detected (Not Detect.); RSV PCR Not Detected (Not Detect.); Rhino/Enterovirus PCR Not Detected (Not Detect.)
[2020-12-31] MEDS: Famotidine 20 MG TABLET PO (20:37)
[2020-12-31] MEDS: Zinc Sulfate 220 MG CAPSULE PO (20:38)
[2021-01-01] VITALS (13 sets, daily range): BP systolic 106–124; BP diastolic 59–68; PULSE 76–93; RESP 15–29; TEMP 36.2–37.1; O2SAT 91–98
[2021-01-01] MEDS: 0.9 % Sodium Chloride Flush 3 ML SYRINGE IVFLUSH ×4 (01:05→21:14)
[2021-01-01] MEDS: vancomycin HCL 1,250 MG in 0.9 % Sodium Chloride 250 ML 166.67 MG IV ×2 (01:06→13:26)
[2021-01-01] MEDS: Ascorbic Acid 500 MG TABLET PO (09:04)
[2021-01-01] MEDS: Famotidine 20 MG TABLET PO ×2 (09:04→21:14)
[2021-01-01] MEDS: dexAMETHasone sod phosphate 4 MG/ML VIAL 6 MG IVPUSH (09:08)
[2021-01-01] MEDS: Zinc Sulfate 220 MG CAPSULE PO (09:08)
[2021-01-01 09:59] LABS: Creatinine Clr Calc Pharmacy 130.2; Estimated Glomerular Filt Rate > 60
--- NOTE | 2021-01-01 11:39 | MHC.CM.PN ---
spoke with pt who is likely covid..pt indicates that he is norm,ally indepedent lives with and children and is working it is not anticapoated that he will need servceis when dcd
[2021-01-01] MEDS: cefEPime HCl 2 GM in 0.9 % Sodium Chloride 50 ML IV ×2 (12:31→21:14)
--- NOTE | 2021-01-01 12:51 | PM.CNPUL ---
History of Present Illness History of Present Illness Consult date: 01/01/21 Chief complaint: Acute hypoxemic respiratory failure Narrative: I have seen this 35 years old gentleman for pulmonary consultation this morning, He has been admitted since yesterday with about 1 week's history of cough, low-grade fever, shortness of breath. Patient started having symptoms around 12/23 he tested positive for COVID-19. Came to the emergency room on 12/27, with the symptoms but did not require oxygen at that time. Chest x-ray showed a density in the left lower lobe. Patient was sent home on symptomatic treatment , but return to the emergency room on 12/31 with increasing symptoms, especially cough and increasing shortness of breath. His chest x-ray as well as CTA of the chest showed extensive bilateral alveolar densities, consistent with COVID-19 pneumonitis. Patient felt better with oxygen initially by nasal cannula but subsequently, during the night his shortness of breath got worse so he is requiring high-flow O2 50 L/minute. He claims that he feels better with the high-flow. His main symptom at this time is frequent cough, which causes discomfort in the chest. Patient denies any preexisting chronic lung disease. He denies history of smoking. He had not received COVID vaccination. Review of Systems Review of Systems: This is patient is quite uncomfortable at this time, due to respiratory symptoms as described above in HPI. [facility] Past Medical History Medical History Anxiety Depression Social History Social History Household Members: Spouse Housing: Apartment Do you presently have visiting nurse or other home services: No Alcohol intake: never Patient Tobacco Use Status: Never used Tobacco service: No Meds Allergies Allergy/AdvReac Type Severity Reaction Status Date / Time codeine [CODEINE] Allergy Severe THROAT Verified 12/31/20 10:37 SWELLING/RASH latex [LATEX] Allergy Intermediate RASH Verified 12/31/20 10:37 Codeine Sulfate Allergy Severe rash thoat Uncoded 12/23/20 11:55 swelling Latex Allergy Intermediate rash Uncoded 12/23/20 11:55 Active Medications: Current Medications Ascorbic Acid (Ascorbic Acid 500 Mg Tablet) 500 mg PO DAILY [facility] Last Admin: 01/01/21 09:04 Dose: 500 mg Documented by: Dexamethasone Sodium Phosphate (Dexamethasone Sod Phosphate 4 Mg/Ml Vial) 6 mg IVPUSH DAILY [facility] Last Admin: 01/01/21 09:08 Dose: 6 mg Documented by: Enoxaparin Sodium (Enoxaparin Sodium 40 Mg/0.4 Ml Syringe) 40 mg SUBCUT Q24H [facility] Last Admin: 12/31/20 19:40 Dose: 40 mg Documented by: Famotidine (Famotidine 20 Mg Tablet) 20 mg PO BID [facility] Last Admin: 01/01/21 09:04 Dose: 20 mg Documented by: Cefepime HCl 2 gm/ Sodium (Chloride) 50 mls @ 100 mls/hr IV Q12H [facility] Last Infusion: 12/31/20 23:49 Dose: Infused Documented by: Vancomycin HCl 1,250 mg/ (Sodium Chloride) 250 mls @ 166.667 mls/hr IV Q12H [facility] Last Infusion: 01/01/21 02:38 Dose: Infused Documented by: Pharmacy Consult (Consult Rx Perform Med Rec) 1 each MISCELLANE ONCE PRN PRN Reason: Consult order Pharmacy Consult (Consult Rx Vancomycin Dosing) 1 each MISCELLANE DAILY PRN PRN Reason: Consult order Sodium Chloride (0.9 % Sodium Chloride Flush 3 Ml Syringe) 3 ml IVFLUSH QSHIFT [facility] Last Admin: 01/01/21 09:03 Dose: 3 ml Documented by: Zinc Sulfate (Zinc Sulfate 220 Mg Capsule) 220 mg PO DAILY [facility] Last Admin: 01/01/21 09:08 Dose: 220 mg Documented by: Home Medications Medication Instructions Recorded Confirmed Last Taken Type clonazepam 1 mg tablet 1 mg PO TID PRN 12/23/20 12/31/20 Unknown History olanzapine 15 mg tablet 15 mg PO BEDTIME 12/23/20 12/31/20 Unknown History oxcarbazepine 300 mg tablet 300 mg PO DAILY 12/23/20 12/31/20 Unknown History perphenazine 8 mg tablet 8 mg PO BID 12/23/20 12/31/20 Unknown History prazosin 5 mg capsule 10 mg PO BEDTIME 12/23/20 12/31/20 Unknown History sertraline 100 mg tablet 200 mg PO DAILY 12/23/20 12/31/20 Unknown History zolpidem 10 mg tablet 10 mg PO BEDTIME PRN 12/23/20 12/31/20 Unknown History oxcarbazepine 300 mg tablet 600 mg PO BEDTIME 12/31/20 12/31/20 Unknown History Physical Exam Vital Signs: Vital Signs: Last Vital Signs Temp 97.9 F 01/01/21 11:22 Pulse 86 01/01/21 11:22 Resp 28 H 01/01/21 11:22 BP 124/67 01/01/21 11:22 Pulse Ox 95 01/01/21 11:22 Body Mass Index 37.3 Const: General: no acute distress, alert and awake; No comfortable (Moderately short of breath, with frequent cough during conversation.) Orientation/consciousness: patient oriented x3 HENMT: Head: Yes normal to inspection General nose exam: No nasal polyps present and No nasal discharge present Face and sinus: Yes sinuses nontender Mouth: oropharynx normal Throat: Yes posterior oropharynx normal Eyes: General: appearance normal, both eyes and all related structures Neck: Neck: Yes normal visual inspection, Yes no lymphadenopathy, Yes trachea midline and Yes no JVD Thyroid: Thyroid normal Chest: Chest palpation & inspection: normal inspection of the chest, normal palpation of entire chest wall and no tenderness Resp: Other: He has equal breath sounds on both sides. The breath sounds are diminished over the lower lobes. Inspiratory crackles are heard over both lower lobes especially over the left base. No wheezes or rhonchi Cardio: Palpation: normal PMI Rate: regular rate Rhythm: regular rhythm Heart sounds: no gallops and no murmurs GI: Palpation (GI): Soft to palpation, nontender, No hepatosplenomegaly present and no masses Auscultation: normal bowel sounds Back/Spine/Pelvis: Thoracic/Lumbar Spine: thoracic and lumbar spine normal to inspection and thoraco-lumbar ROM limited Skin: General skin exam: no rashes or lesions noted Neuro: General: patient oriented x3 and no focal motor deficits Cranial nerves: Yes CN's II-XII intact bilaterally Extrem: General: Yes normal to inspection, Yes no clubbing, cyanosis or edema and Yes no calf tenderness Psych: Speech and movement: Normal speech and movement present Affect: Anxious affect present Results Laboratory Findings CBC and BMP: 12/31/20 10:44 01/01/21 09:30 ABG, PT/INR, D-dimer: PT/INR, D-dimer PT 14.0 SEC (9.9-13.0) H 12/31/20 10:44 INR 1.2 (0.9-1.1) H 12/31/20 10:44 D-Dimer 478 NG/ML 12/31/20 10:44 Abnormal lab findings: Abnormal Labs 12/31/20 12/31/20 12/31/20 10:44 10:44 10:44 Hgb 13.8 L Hct 40.9 L MPV 8.7 L Immature Gran % (Auto) 1.2 H Neut % (Auto) 88.1 H Lymph % (Auto) 6.6 L Lymph # (Auto) 0.5 L Abs Immat Gran (auto) 0.09 H PT 14.0 H INR 1.2 H VBG pH VBG HCO3 BUN 8 L D Calcium 7.7 L AST 80 H ALT 63 H Lactate Dehydrogenase 811 H C-Reactive Protein 19.74 H 12/31/20 10:54 Hgb Hct MPV Immature Gran % (Auto) Neut % (Auto) Lymph % (Auto) Lymph # (Auto) Abs Immat Gran (auto) PT INR VBG pH 7.48 H VBG HCO3 28 H BUN Calcium AST ALT Lactate Dehydrogenase C-Reactive Protein Diagnostic Findings Chest x-ray: report reviewed and image reviewed Assessment and Plan (1) COVID-19: Status: Acute According to the history he started having COVID symptoms on 12/23, He has progressive alveolar densities, especially in lower lobes, c/w COVID 19 pneumonia. For treatment, dexamethasone 6 mg daily 10 days. Famotidine 40 mg b.i.d., He has been empirically started on vancomycin and cefepime. I suggest that if bacterial cultures are negative, then this combination can be stopped. For cough control I have added benzonatate 200 mg t.i.d. p.r.n.. (2) Multifocal pneumonia: Status: Acute Acute COVID 19 pneumonia, as noted above. (3) Acute respiratory distress: Status: Acute Patient has progressive ARDS at this time, causing acute respiratory failure, with hypoxemia. This may be getting worse for the next few days. For treatment, use high-flow O2 to keep O2 sat above 90%, As he stabilizes and starts improving then we will wean him down on the O2 . If his condition gets worse he may need intubation and vent support. Procedures Date of Service Date of Service: 01/01/21
--- NOTE | 2021-01-01 15:35 | HO.PM.IMPN ---
Subjective Subjective Date of Service: 01/01/21 Interval History: Acute hypoxemic respiratory failure secondary to PNEUMONIA . Physical Exam Vital Signs: Vital Signs: Last Vital Signs Temp 97.9 F 01/01/21 11:22 Pulse 86 01/01/21 11:22 Resp 28 H 01/01/21 11:22 BP 124/67 01/01/21 11:22 Pulse Ox 95 01/01/21 11:22 Body Mass Index 37.3 Appearance: Alert.? Oriented X3.? not in distress.? Eyes: Pupils equal, round and reactive to light.? Sclera nonicteric.? ENT: Pharynx normal.? Moist mucous membranes. cvs: rrr, [id number] res:? Air entry fair, diminished at bases, mild rhonchi. abd: no rebound or guarding ,nt, bs present. ext pulses present , no cyanosis ,Gait well balanced well coordinated. neuro: axo3 , nonfocal. Objective Data Active Medications Ascorbic Acid (Ascorbic Acid 500 Mg Tablet) 500 mg PO DAILY [facility] Last Admin: 01/01/21 09:04 Dose: 500 mg Documented by: IFTIKHAR Benzonatate (Benzonatate 100 Mg Capsule) 200 mg PO TID PRN PRN Reason: Cough Dexamethasone Sodium Phosphate (Dexamethasone Sod Phosphate 4 Mg/Ml Vial) 6 mg IVPUSH DAILY [facility] Last Admin: 01/01/21 09:08 Dose: 6 mg Documented by: IFTIKHAR Enoxaparin Sodium (Enoxaparin Sodium 40 Mg/0.4 Ml Syringe) 40 mg SUBCUT Q24H [facility] Last Admin: 12/31/20 19:40 Dose: 40 mg Documented by: SHAHEED Famotidine (Famotidine 20 Mg Tablet) 20 mg PO BID [facility] Last Admin: 01/01/21 09:04 Dose: 20 mg Documented by: IFTIKHAR Cefepime HCl 2 gm/ Sodium (Chloride) 50 mls @ 100 mls/hr IV Q12H [facility] Last Infusion: 01/01/21 13:21 Dose: 0 mls/hr Documented by: IFTIKHAR Vancomycin HCl 1,250 mg/ (Sodium Chloride) 250 mls @ 166.667 mls/hr IV Q12H [facility] Last Infusion: 01/01/21 15:20 Dose: 0 mls/hr Documented by: IFTIKHAR Pharmacy Consult (Consult Rx Perform Med Rec) 1 each MISCELLANE ONCE PRN PRN Reason: Consult order Pharmacy Consult (Consult Rx Vancomycin Dosing) 1 each MISCELLANE DAILY PRN PRN Reason: Consult order Sodium Chloride (0.9 % Sodium Chloride Flush 3 Ml Syringe) 3 ml IVFLUSH QSHIFT [facility] Last Admin: 01/01/21 09:03 Dose: 3 ml Documented by: IFTIKHAR Zinc Sulfate (Zinc Sulfate 220 Mg Capsule) 220 mg PO DAILY [facility] Last Admin: 01/01/21 09:08 Dose: 220 mg Documented by: IFTIKHAR Labs CBC & Chem 7: 12/31/20 10:44 01/01/21 09:30 Labs: Laboratory Results - last 24 hr 01/01/21 09:30 Estim Creat Clear Calc 130.2 Estimated GFR > 60 Microbiology Microbiology Results: Microbiology 12/31/20 11:34 Blood Culture - Preliminary Blood - Venous No growth after 24 hours. 12/31/20 10:54 Blood Culture - Preliminary Blood - Venous No growth after 24 hours. Assessment and Plan (1) Fever: Status: Acute (2) COVID-19: Status: Acute (3) Hypoxia: Status: Acute Assessment and Plan: ?1. Acute hypoxemic respiratory failure secondary to possible? COVID pneumonia. Repeated COVID negative but he was positive for COVID pcr on 12/23 Started on dexamethasone, high-flow oxygen, zinc, Pepcid CT and negative for PE Id evaluation for remdesivir, also added pulmonary elevation since has acute hypoxemic respiratory failure. Procalcitonin level is slightly elevated, blood culture cultures sent. Continue IV broad-spectrum antibiotic coverage for now until blood cultures come negative. Diarrhea probably related to COVID, will add stool studies Id eval pending 2. Morbid obesity discussed with the patient in detail encouraged for weight loss. 3. DVT prophylaxis with Lovenox Above management discussed with the patient in detail length including antibiotic use and oxygen and respiratory failure management he understand and in agreement with the above plan patient is full code. Quality Stroke Does the patient have a stroke diagnosis?: No VTE Prior VTE?: No VTE Risk Level:: Medical - moderate - high VTE Device Contraindication: N/A - Device Ordered VTE Drug Contraindication: N/A - Med Ordered
[2021-01-01 16:39] LABS: SARS-CoV-2 PCR Detected (Not Detect.)
[2021-01-01] MEDS: Enoxaparin Sodium 40 MG/0.4 ML SYRINGE SUBCUT (18:44)
--- NOTE | 2021-01-01 22:24 | W.PM.IDCN ---
History of Present Illness Data of Consult Service Date: 01/01/21 Requesting physician: Avery Linares Primary Care Provider: JOHNATHAN Morel Reason for consult: COVID He presents with shortness of breath as well as cough for 14 days,now worse. He is diagnosed with COVID. He has no productive sputum or other complaints Review of Systems Review of Systems: Yes all other systems are reviewed and are negative PMFSH Past Medical History Medical History Anxiety Depression Family History Family history: reviewed and not pertinent Social History Social History Household Members: Spouse Housing: Apartment Do you presently have visiting nurse or other home services: No Alcohol intake: never Patient Tobacco Use Status: Never used Tobacco service: No Meds Allergies Allergy/AdvReac Type Severity Reaction Status Date / Time codeine [CODEINE] Allergy Severe THROAT Verified 12/31/20 10:37 SWELLING/RASH latex [LATEX] Allergy Intermediate RASH Verified 12/31/20 10:37 Codeine Sulfate Allergy Severe rash thoat Uncoded 12/23/20 11:55 swelling Latex Allergy Intermediate rash Uncoded 12/23/20 11:55 Active Medications: Current Medications Ascorbic Acid (Ascorbic Acid 500 Mg Tablet) 500 mg PO DAILY [facility] Last Admin: 01/01/21 09:04 Dose: 500 mg Documented by: Benzonatate (Benzonatate 100 Mg Capsule) 200 mg PO TID PRN PRN Reason: Cough Dexamethasone Sodium Phosphate (Dexamethasone Sod Phosphate 4 Mg/Ml Vial) 6 mg IVPUSH DAILY [facility] Last Admin: 01/01/21 09:08 Dose: 6 mg Documented by: Enoxaparin Sodium (Enoxaparin Sodium 40 Mg/0.4 Ml Syringe) 40 mg SUBCUT Q24H [facility] Last Admin: 01/01/21 18:44 Dose: 40 mg Documented by: Famotidine (Famotidine 20 Mg Tablet) 20 mg PO BID [facility] Last Admin: 01/01/21 21:14 Dose: 20 mg Documented by: Cefepime HCl 2 gm/ Sodium (Chloride) 50 mls @ 100 mls/hr IV Q12H [facility] Last Infusion: 01/01/21 21:57 Dose: Infused Documented by: Vancomycin HCl 1,250 mg/ (Sodium Chloride) 250 mls @ 166.667 mls/hr IV Q12H [facility] Last Infusion: 01/01/21 15:20 Dose: Infused Documented by: Pharmacy Consult (Consult Rx Perform Med Rec) 1 each MISCELLANE ONCE PRN PRN Reason: Consult order Pharmacy Consult (Consult Rx Vancomycin Dosing) 1 each MISCELLANE DAILY PRN PRN Reason: Consult order Sodium Chloride (0.9 % Sodium Chloride Flush 3 Ml Syringe) 3 ml IVFLUSH QSHIFT [facility] Last Admin: 01/01/21 21:14 Dose: 3 ml Documented by: Zinc Sulfate (Zinc Sulfate 220 Mg Capsule) 220 mg PO DAILY [facility] Last Admin: 01/01/21 09:08 Dose: 220 mg Documented by: Home Medications Medication Instructions Recorded Confirmed Last Taken Type clonazepam 1 mg tablet 1 mg PO TID PRN 12/23/20 12/31/20 Unknown History olanzapine 15 mg tablet 15 mg PO BEDTIME 12/23/20 12/31/20 Unknown History oxcarbazepine 300 mg tablet 300 mg PO DAILY 12/23/20 12/31/20 Unknown History perphenazine 8 mg tablet 8 mg PO BID 12/23/20 12/31/20 Unknown History prazosin 5 mg capsule 10 mg PO BEDTIME 12/23/20 12/31/20 Unknown History sertraline 100 mg tablet 200 mg PO DAILY 12/23/20 12/31/20 Unknown History zolpidem 10 mg tablet 10 mg PO BEDTIME PRN 12/23/20 12/31/20 Unknown History oxcarbazepine 300 mg tablet 600 mg PO BEDTIME 12/31/20 12/31/20 Unknown History Physical Exam Vital Signs: Vital Signs: Last Vital Signs Temp 98 F 01/01/21 20:00 Pulse 80 01/01/21 20:00 Resp 16 01/01/21 20:00 BP 122/62 01/01/21 20:00 Pulse Ox 97 01/01/21 20:00 Body Mass Index 37.3 Const: General: cooperative HENMT: Head: Yes normal to inspection Mouth: Normal oral and palatal mucosa present Eyes: General: appearance normal, both eyes and all related structures Resp: Other: shortness of breath Cardio: Rate: regular rate Rhythm: regular rhythm GI: Palpation (GI): Soft to palpation and nontender Extrem: General: Yes normal to inspection Results Labs CBC & Chem 7: 12/31/20 10:44 01/01/21 09:30 Labs: BMP 01/01/21 09:30 Creatinine 0.89 Microbiology Microbiology Results: Microbiology 12/31/20 11:34 Blood - Venous Blood Culture - Preliminary No growth after 24 hours. 12/31/20 10:54 Blood - Venous Blood Culture - Preliminary No growth after 24 hours. Assessment and Plan (1) COVID-19: Status: Acute He has COVID 14 days. He has shortness of breath,COVID alveoli destruction He is too far out for Remdesivir. Would give oxygen and steroids for 10 days (2) Hypoxia: Status: Acute
[2021-01-02] VITALS (11 sets, daily range): BP systolic 107–131; BP diastolic 57–77; PULSE 66–86; RESP 16–20; TEMP 36.4–37.2; O2SAT 86–98
[2021-01-02 00:33] LABS: Vancomycin Trough 7.4 mcg/mL (10.0-20.0)
[2021-01-02] MEDS: vancomycin HCL 1,250 MG in 0.9 % Sodium Chloride 250 ML 166.67 MG IV (01:11)
[2021-01-02 04:39] LABS: SARS COV2 IgG Positive (Negative)
--- NOTE | 2021-01-02 06:40 | HE.PHANOTE ---
Vancomycin Dosing Addendum Trough came back low at 7.4 with predicted AUC of 475. Increasing dose to 1500 mg q12h for a predicted AUC of 450. Next trough 01/03/21 @1200.
[2021-01-02 07:17] LABS: Alanine Aminotransferase 60 U/L (0-40); Albumin Level 3.4 g/dL (3.5-5.0); Alkaline Phosphatase 70 U/L (39-117); Anion Gap 16 (12-20); Aspartate Amino Transferase 53 U/L (5-37); Bilirubin Direct 0.2 mg/dL (0.0-0.5); Bilirubin Total 0.2 mg/dL (0.0-1.0); Blood Urea Nitrogen 22 mg/dL (9-16); Carbon Dioxide 27 mmol/L (22-29); Chloride 104 mmol/L (96-108); Creatinine Clr Calc Pharmacy 128.8; Estimated Glomerular Filt Rate > 60; Glucose Random 115 mg/dL (60-115); Potassium 3.7 mmol/L (3.3-5.1); Sodium 143 mmol/L (135-145); Total Protein 6.5 g/dL (6.5-8.0)
[2021-01-02] MEDS: Famotidine 20 MG TABLET 40 MG PO ×2 (08:30→20:44)
[2021-01-02] MEDS: Ascorbic Acid 500 MG TABLET PO (08:30)
[2021-01-02] MEDS: dexAMETHasone sod phosphate 4 MG/ML VIAL 6 MG IVPUSH (08:30)
[2021-01-02] MEDS: 0.9 % Sodium Chloride Flush 3 ML SYRINGE IVFLUSH ×3 (08:31→20:45)
[2021-01-02] MEDS: Zinc Sulfate 220 MG CAPSULE PO (08:32)
--- NOTE | 2021-01-02 09:24 | P.PNPL_ITS ---
Subjective Subjective Date of Service: 01/02/21 Principal diagnosis: Covid PN. Interval history: Feels a little better,, cough is less, breathing is relatively ease year. No fever or chills. Still needs high-flow O2. Objective Data Labs CBC & Chem 7: 12/31/20 10:44 01/02/21 05:52 Labs: Laboratory Results - last 24 hr 12/31/20 12/31/20 01/01/21 16:39 19:39 09:30 Sodium Potassium Chloride Carbon Dioxide Anion Gap BUN Creatinine 0.89 Estim Creat Clear Calc 130.2 Estimated GFR > 60 Random Glucose Calcium Total Bilirubin Direct Bilirubin AST ALT Alkaline Phosphatase Total Protein Albumin Vancomycin Trough Respiratory Panel [place] See Note Adenovirus (Rapid PCR) Not Detected B.pert (TEM-PCR) Not Detected B.parapertussis DNA PCR Not Detected C. pneumoniae DNA (PCR) Not Detected Coronavirus OC43 (PCR) Not Detected Coronavirus HKU1 (PCR) Not Detected Coronavirus 229E (PCR) Not Detected Coronavirus NL63 (PCR) Not Detected Human Metapneumovir PCR Not Detected Influenza A (RT-PCR) Not Detected Influenza B (RT-PCR) Not Detected M. pneumoniae (PCR) Not Detected Parainfluenza 1 (PCR) Not Detected Parainfluenza 2 (PCR) Not Detected Parainfluenza 3 (PCR) Not Detected Parainfluenza 4 (PCR) Not Detected RSV (PCR) Not Detected Entero/Rhino (PCR) Not Detected SARS-CoV-2 RNA (RT-PCR) Detected A SARS-CoV-2 IgG Ab Positive 01/01/21 01/02/21 23:46 05:52 Sodium 143 Potassium 3.7 Chloride 104 Carbon Dioxide 27 Anion Gap 16 BUN 22 H D Creatinine 0.90 Estim Creat Clear Calc 128.8 Estimated GFR > 60 Random Glucose 115 Calcium 8.0 L Total Bilirubin 0.2 Direct Bilirubin 0.2 AST 53 H ALT 60 H Alkaline Phosphatase 70 Total Protein 6.5 Albumin 3.4 L Vancomycin Trough 7.4 L Respiratory Panel [place] Adenovirus (Rapid PCR) B.pert (TEM-PCR) B.parapertussis DNA PCR C. pneumoniae DNA (PCR) Coronavirus OC43 (PCR) Coronavirus HKU1 (PCR) Coronavirus 229E (PCR) Coronavirus NL63 (PCR) Human Metapneumovir PCR Influenza A (RT-PCR) Influenza B (RT-PCR) M. pneumoniae (PCR) Parainfluenza 1 (PCR) Parainfluenza 2 (PCR) Parainfluenza 3 (PCR) Parainfluenza 4 (PCR) RSV (PCR) Entero/Rhino (PCR) SARS-CoV-2 RNA (RT-PCR) SARS-CoV-2 IgG Ab Microbiology Microbiology Results: Microbiology 12/31/20 11:34 Blood - Venous Blood Culture - Preliminary No growth after 24 hours. 12/31/20 10:54 Blood - Venous Blood Culture - Preliminary No growth after 24 hours. Review of Systems Review of Systems At this point his symptoms are mainly confined to the respiratory system and also general weakness Has no fever or chills Physical Exam Vital Signs: Vital Signs: Last Vital Signs Temp 97.6 F 01/02/21 08:00 Pulse 78 01/02/21 08:00 Resp 18 01/02/21 09:13 BP 110/58 L 01/02/21 08:00 Pulse Ox 98 01/02/21 08:00 Body Mass Index 37.3 Const: Other: Patient is still short of breath but does not seem to be distressed. General: alert and awake Orientation/consciousness: patient oriented x3 HENMT: Head: Yes normal to inspection General nose exam: No nasal polyps present and No nasal discharge present Face and sinus: Yes sinuses nontender Mouth: oropharynx normal Throat: Yes posterior oropharynx normal Eyes: General: appearance normal, both eyes and all related structures Neck: Neck: Yes normal visual inspection, Yes no lymphadenopathy, Yes trachea midline and Yes no JVD Thyroid: Thyroid normal Chest: Chest palpation & inspection: normal inspection of the chest, normal palpation of entire chest wall and no tenderness Resp: Other: Percussion note is resonant, breath sounds are decreased may be due to obese chest wall. Inspiratory crackles are heard over the lower lobes , posteriorly. Cardio: Palpation: normal PMI Rate: regular rate Rhythm: regular rhythm Heart sounds: no gallops and no murmurs Peripheral pulses: Peripheral pulses 2+ throughout GI: Palpation (GI): Soft to palpation, nontender, No hepatosplenomegaly present and no masses Auscultation: normal bowel sounds Back/Spine/Pelvis: Thoracic/Lumbar Spine: thoracic and lumbar spine normal to inspection Skin: General skin exam: no rashes or lesions noted Neuro: General: patient oriented x3 and no focal motor deficits Cranial nerves: Yes CN's II-XII intact bilaterally Extrem: General: Yes normal to inspection, Yes no clubbing, cyanosis or edema and Yes no calf tenderness Psych: Speech and movement: Normal speech and movement present Procedures Date of Service Date of Service: 01/02/21 Assessment and Plan Assessment and plan (1) COVID-19: Status: Acute (2) Multifocal pneumonia: Problem details: Radiologically this gentleman does have bilateral alveolar infiltrates consistent with the multifocal pneumonia due to COVID-19. The bacterial culture so far are negative, I do not think that pneumonia is usual community-acquired pneumonia. I think it will be okay to DC vancomycin and cefepime . Status: Acute (3) Acute respiratory distress: Problem details: Patient has typical ARDS picture secondary to COVID pneumonia. Currently requiring high-flow O2, which should be continued. Hopefully he will start improving in a few days and then can be weaned off the high-flow gradually, downgrading to Ventimask or nasal cannula Status: Acute Time Spent With Patient Time: Total time spent is greater than 50% in coordination of care (as document ed) at patient's floor/unit and/or counseling patient: Time with patient: 15 - 24 minutes Progress Note: Quality Stroke Does the patient have a stroke diagnosis?: No
[2021-01-02] MEDS: cefEPime HCl 2 GM in 0.9 % Sodium Chloride 50 ML IV ×2 (10:54→23:50)
[2021-01-02] MEDS: vancomycin HCL 1,500 MG in 0.9 % Sodium Chloride 500 ML 333.33 MG IV (11:59)
--- NOTE | 2021-01-02 14:30 | HO.PM.IMPN ---
Subjective Subjective Date of Service: 01/02/21 Interval History: Acute hypoxemic respiratory failure secondary to PNEUMONIA? Review of Systems Shortness of breath seems to be improving slightly than yesterday Still has a cough. Physical Exam Vital Signs: Vital Signs: Last Vital Signs Temp 98.0 F 01/02/21 12:00 Pulse 79 01/02/21 12:00 Resp 20 01/02/21 12:00 BP 112/60 01/02/21 12:00 Pulse Ox 97 01/02/21 12:00 Body Mass Index 37.3 ?Appearance: Alert.? Oriented X3.? not in distress.? Eyes: Pupils equal, round and reactive to light.? Sclera nonicteric.? ENT: Pharynx normal.? Moist mucous membranes. cvs: rrr, [id number] res:? Air entry fair, diminished at bases siliar as yesterday, mild rhonchi. abd: no rebound or guarding ,nt, bs present. ext pulses present , no cyanosis neuro: axo3 , nonfocal. Objective Data Active Medications Ascorbic Acid (Ascorbic Acid 500 Mg Tablet) 500 mg PO DAILY [facility] [place] Last Admin: 01/02/21 08:30 Dose: 500 mg Documented by: ALLY Benzonatate (Benzonatate 100 Mg Capsule) 200 mg PO TID PRN PRN Reason: Cough Dexamethasone Sodium Phosphate (Dexamethasone Sod Phosphate 4 Mg/Ml Vial) 6 mg IVPUSH DAILY [facility] [place] Last Admin: 01/02/21 08:30 Dose: 6 mg Documented by: ALLY Enoxaparin Sodium (Enoxaparin Sodium 40 Mg/0.4 Ml Syringe) 40 mg SUBCUT Q24H [facility] [place] Last Admin: 01/01/21 18:44 Dose: 40 mg Documented by: IFTIKHAR Famotidine (Famotidine 20 Mg Tablet) 40 mg PO BID [facility] [place] Last Admin: 01/02/21 08:30 Dose: 40 mg Documented by: ALLY Cefepime HCl 2 gm/ Sodium (Chloride) 50 mls @ 100 mls/hr IV Q12H [facility] [place] Last Infusion: 01/02/21 11:41 Dose: 0 mls/hr Documented by: ALLY Vancomycin HCl 1,500 mg/ (Sodium Chloride) 500 mls @ 333.333 mls/hr IV Q12H [facility] [place] Last Infusion: 01/02/21 13:50 Dose: 0 mls/hr Documented by: ALLY Pharmacy Consult (Consult Rx Perform Med Rec) 1 each MISCELLANE ONCE PRN PRN Reason: Consult order Pharmacy Consult (Consult Rx Vancomycin Dosing) 1 each MISCELLANE DAILY PRN PRN Reason: Consult order Sodium Chloride (0.9 % Sodium Chloride Flush 3 Ml Syringe) 3 ml IVFLUSH QSHIFT [facility] [place] Last Admin: 01/02/21 08:31 Dose: 3 ml Documented by: ALLY Zinc Sulfate (Zinc Sulfate 220 Mg Capsule) 220 mg PO DAILY [facility] [place] Last Admin: 01/02/21 08:32 Dose: 220 mg Documented by: ALLY Labs CBC & Chem 7: 12/31/20 10:44 01/02/21 05:52 Labs: Laboratory Results - last 24 hr 12/31/20 12/31/20 01/01/21 16:39 19:39 23:46 Anion Gap Estim Creat Clear Calc Estimated GFR Random Glucose Calcium Total Bilirubin Direct Bilirubin AST ALT Alkaline Phosphatase Total Protein Albumin Vancomycin Trough 7.4 L Respiratory Panel [place] See Note Adenovirus (Rapid PCR) Not Detected B.pert (TEM-PCR) Not Detected B.parapertussis DNA PCR Not Detected C. pneumoniae DNA (PCR) Not Detected Coronavirus OC43 (PCR) Not Detected Coronavirus HKU1 (PCR) Not Detected Coronavirus 229E (PCR) Not Detected Coronavirus NL63 (PCR) Not Detected Human Metapneumovir PCR Not Detected Influenza A (RT-PCR) Not Detected Influenza B (RT-PCR) Not Detected M. pneumoniae (PCR) Not Detected Parainfluenza 1 (PCR) Not Detected Parainfluenza 2 (PCR) Not Detected Parainfluenza 3 (PCR) Not Detected Parainfluenza 4 (PCR) Not Detected RSV (PCR) Not Detected Entero/Rhino (PCR) Not Detected SARS-CoV-2 RNA (RT-PCR) Detected A SARS-CoV-2 IgG Ab Positive 01/02/21 05:52 Anion Gap 16 Estim Creat Clear Calc 128.8 Estimated GFR > 60 Random Glucose 115 Calcium 8.0 L Total Bilirubin 0.2 Direct Bilirubin 0.2 AST 53 H ALT 60 H Alkaline Phosphatase 70 Total Protein 6.5 Albumin 3.4 L Vancomycin Trough Respiratory Panel [place] Adenovirus (Rapid PCR) B.pert (TEM-PCR) B.parapertussis DNA PCR C. pneumoniae DNA (PCR) Coronavirus OC43 (PCR) Coronavirus HKU1 (PCR) Coronavirus 229E (PCR) Coronavirus NL63 (PCR) Human Metapneumovir PCR Influenza A (RT-PCR) Influenza B (RT-PCR) M. pneumoniae (PCR) Parainfluenza 1 (PCR) Parainfluenza 2 (PCR) Parainfluenza 3 (PCR) Parainfluenza 4 (PCR) RSV (PCR) Entero/Rhino (PCR) SARS-CoV-2 RNA (RT-PCR) SARS-CoV-2 IgG Ab Microbiology Microbiology Results: Microbiology 12/31/20 11:34 Blood Culture - Preliminary Blood - Venous No growth after 48 hours. 12/31/20 10:54 Blood Culture - Preliminary Blood - Venous No growth after 48 hours. Assessment and Plan (1) Fever: Status: Acute (2) COVID-19: Status: Acute (3) Hypoxia: Status: Acute Assessment and Plan: 1. Acute hypoxemic respiratory failure secondary to possible? COVID pneumonia. Repeated COVID negative but he was positive for COVID pcr on 12/23 Started on dexamethasone, high-flow oxygen, zinc, Pepcid CT and negative for PE Id evaluation for remdesivir, also added pulmonary elevation since has acute hypoxemic respiratory failure. Procalcitonin level is slightly elevated, blood culture cultures sent. Continue IV broad-spectrum antibiotic coverage for now until blood cultures come negative. Diarrhea probably related to COVID, will add stool studies Id eval pending 2. Morbid obesity discussed with the patient in detail encouraged for weight loss. 3. DVT prophylaxis with Lovenox Above management discussed with the patient in detail length including antibiotic use and oxygen and respiratory failure management he understand and in agreement with the above plan patient is full code. Quality Stroke Does the patient have a stroke diagnosis?: No VTE Prior VTE?: No VTE Risk Level:: Medical - moderate - high VTE Device Contraindication: N/A - Device Ordered VTE Drug Contraindication: N/A - Med Ordered
[2021-01-02] MEDS: Enoxaparin Sodium 40 MG/0.4 ML SYRINGE SUBCUT (17:24)
[2021-01-03] VITALS (7 sets, daily range): BP systolic 104–116; BP diastolic 51–72; PULSE 62–78; RESP 18–20; TEMP 36.4–37; O2SAT 92–99
[2021-01-03] MEDS: vancomycin HCL 1,500 MG in 0.9 % Sodium Chloride 500 ML 333.33 MG IV (00:26)
[2021-01-03 06:50] LABS: Creatinine Clr Calc Pharmacy 133.2; Estimated Glomerular Filt Rate > 60
[2021-01-03] MEDS: guaiFEN/Codeine SF 200/20/10ML 10 ML LIQUID 5 ML PO ×3 (08:56→21:00)
[2021-01-03] MEDS: Zinc Sulfate 220 MG CAPSULE PO (08:56)
[2021-01-03] MEDS: 0.9 % Sodium Chloride Flush 3 ML SYRINGE IVFLUSH ×3 (08:56→21:07)
[2021-01-03] MEDS: Famotidine 20 MG TABLET 40 MG PO ×2 (08:57→21:01)
[2021-01-03] MEDS: dexAMETHasone sod phosphate 4 MG/ML VIAL 6 MG IVPUSH (08:57)
[2021-01-03] MEDS: Ascorbic Acid 500 MG TABLET PO (08:57)
[2021-01-03] MEDS: Loratadine 10 MG TABLET PO (08:57)
[2021-01-03 12:46] LABS: Vancomycin Trough 13.9 mcg/mL (10.0-20.0)
--- NOTE | 2021-01-03 15:22 | HO.PM.IMPN ---
Subjective Subjective Date of Service: 01/03/21 Interval History: Acute hypoxemic respiratory failure secondary to PNEUMONIA? Review of Systems Shortness of breath seems to be improving slightly than yesterday Still has a cough. Physical Exam Vital Signs: Vital Signs: Last Vital Signs Temp 97.9 F 01/03/21 12:00 Pulse 71 01/03/21 12:00 Resp 18 01/03/21 12:00 BP 116/65 01/03/21 12:00 Pulse Ox 93 01/03/21 12:00 Body Mass Index 37.3 ??Appearance: Alert.? Oriented X3.? not in distress.? Eyes: Pupils equal, round and reactive to light.? Sclera nonicteric.? ENT: Pharynx normal.? Moist mucous membranes. cvs: rrr, [id number] res:? Air entry fair, diminished at bases but slightly better yesterday, no wheezing or rhonchiii. abd: no rebound or guarding ,nt, bs present. ext pulses present , no cyanosis neuro: axo3 , nonfocal. Objective Data Active Medications Ascorbic Acid (Ascorbic Acid 500 Mg Tablet) 500 mg PO DAILY [facility] Last Admin: 01/03/21 08:57 Dose: 500 mg Documented by: ZURI Benzonatate (Benzonatate 100 Mg Capsule) 200 mg PO TID PRN PRN Reason: Cough Dexamethasone Sodium Phosphate (Dexamethasone Sod Phosphate 4 Mg/Ml Vial) 6 mg IVPUSH DAILY [facility] Last Admin: 01/03/21 08:57 Dose: 6 mg Documented by: ZURI Enoxaparin Sodium (Enoxaparin Sodium 40 Mg/0.4 Ml Syringe) 40 mg SUBCUT Q24H [facility] Last Admin: 01/02/21 17:24 Dose: 40 mg Documented by: BRITT Famotidine (Famotidine 20 Mg Tablet) 40 mg PO BID [facility] Last Admin: 01/03/21 08:57 Dose: 40 mg Documented by: ZURI Guaifenesin/Codeine Phosphate (Guaifen/Codeine Sf 200/20/10ml 10 Ml Liquid) 5 ml PO Q6H [facility] Last Admin: 01/03/21 14:00 Dose: 5 ml Documented by: ZURI Loratadine (Loratadine 10 Mg Tablet) 10 mg PO DAILY [facility] Last Admin: 01/03/21 08:57 Dose: 10 mg Documented by: ZURI Pharmacy Consult (Consult Rx Perform Med Rec) 1 each MISCELLANE ONCE PRN PRN Reason: Consult order Pharmacy Consult (Consult Rx Vancomycin Dosing) 1 each MISCELLANE DAILY PRN PRN Reason: Consult order Sodium Chloride (0.9 % Sodium Chloride Flush 3 Ml Syringe) 3 ml IVFLUSH QSHIFT [facility] Last Admin: 01/03/21 08:56 Dose: 3 ml Documented by: ZURI Zinc Sulfate (Zinc Sulfate 220 Mg Capsule) 220 mg PO DAILY [facility] Last Admin: 01/03/21 08:56 Dose: 220 mg Documented by: ZURI Labs CBC & Chem 7: 12/31/20 10:44 01/03/21 05:59 Labs: Laboratory Results - last 24 hr 01/03/21 01/03/21 05:59 12:10 Estim Creat Clear Calc 133.2 Estimated GFR > 60 Vancomycin Trough 13.9 Microbiology Microbiology Results: Microbiology 12/31/20 11:34 Blood Culture - Preliminary Blood - Venous No growth after 48 hours. 12/31/20 10:54 Blood Culture - Preliminary Blood - Venous No growth after 48 hours. Assessment and Plan (1) COVID-19: Status: Acute (2) Multifocal pneumonia: Status: Acute Assessment and Plan: 1. Acute hypoxemic respiratory failure secondary to possible? COVID pneumonia. Repeated COVID negative but he was positive for COVID pcr on 12/23 CT and negative for PE Id evaluation for remdesivir, also added pulmonary elevation since has acute hypoxemic respiratory failure. Procalcitonin level is slightly elevated, blood culture cultures sent. off IV broad-spectrum antibiotic coverage for now until blood cultures come negative. Diarrhea probably related to COVID, will add stool studies Id eval and pulm d/w : sob and hypoxia improving , now on 10 liter hughes Started on 05/08 dexamethasone, high-flow oxygen, zinc, Pepcid diarrahe landon : added stool studies. 2. Morbid obesity discussed with the patient in detail encouraged for weight loss. 3. DVT prophylaxis with Lovenox Above management discussed with the patient in detail length including antibiotic use and oxygen and respiratory failure management he understand and in agreement with the above plan patient is full code. Quality Stroke Does the patient have a stroke diagnosis?: No VTE Prior VTE?: No VTE Risk Level:: Medical - moderate - high VTE Device Contraindication: N/A - Device Ordered VTE Drug Contraindication: N/A - Med Ordered
[2021-01-03 15:28] LABS: Leukocytes Stool Qualitative NEGATIVE (NEGATIVE)
[2021-01-03 16:23] LABS: CDiff Gene PCR NEGATIVE (Negative)
[2021-01-03] MEDS: Enoxaparin Sodium 40 MG/0.4 ML SYRINGE SUBCUT (19:40)
[2021-01-04] VITALS (8 sets, daily range): BP systolic 104–122; BP diastolic 65–80; PULSE 60–70; RESP 12–18; TEMP 35.4–36.4; O2SAT 94–98
[2021-01-04] MEDS: Famotidine 20 MG TABLET 40 MG PO ×2 (08:19→21:17)
[2021-01-04] MEDS: dexAMETHasone sod phosphate 4 MG/ML VIAL 6 MG IVPUSH (08:19)
[2021-01-04] MEDS: Ascorbic Acid 500 MG TABLET PO (08:19)
[2021-01-04] MEDS: Loratadine 10 MG TABLET PO (08:20)
[2021-01-04] MEDS: 0.9 % Sodium Chloride Flush 3 ML SYRINGE IVFLUSH ×4 (08:20→21:22)
[2021-01-04] MEDS: Zinc Sulfate 220 MG CAPSULE PO (08:20)
[2021-01-04] MEDS: guaiFEN/Codeine SF 200/20/10ML 10 ML LIQUID 5 ML PO ×3 (08:20→21:17)
[2021-01-04] MEDS: Acetaminophen 325 MG TABLET 650 MG PO (10:27)
--- NOTE | 2021-01-04 14:21 | P.PNIM_ITS ---
Subjective Subjective Date of Service: 01/04/21 Interval History: Multifocal pneumonia-bilateral alveolar infiltrates consistent with the multifocal pneumonia due to COVID-19. Review of Systems Shortness of breath seems to be improving significantly Cough is also improving Denies any chest pain or abdominal pain or fever chills, no diarrhea Physical Exam Vital Signs: Vital Signs: Last Vital Signs Temp 95.8 F L 01/04/21 12:00 Pulse 65 01/04/21 12:00 Resp 18 01/04/21 12:00 BP 104/65 01/04/21 12:00 Pulse Ox 95 01/04/21 12:00 Body Mass Index 37.3 Appearance: Alert.? Oriented X3.?sob improving.? Eyes: Pupils equal, round and reactive to light.? Sclera nonicteric.? ENT: Pharynx normal.? Moist mucous membranes. cvs: rrr, [id number] res:? Air entry faimrpoving better than yesterday,no wheezing or rhonchiii. abd: no rebound or guarding ,nt, bs present. ext pulses present , no cyanosis neuro: axo3 , nonfocal. Objective Data Active Medications Acetaminophen (Acetaminophen 325 Mg Tablet) 650 mg PO Q6H PRN PRN Reason: Pain, Mild (Pain Scale 1-3) Ascorbic Acid (Ascorbic Acid 500 Mg Tablet) 500 mg PO DAILY [facility] Last Admin: 01/04/21 08:19 Dose: 500 mg Documented by: CED Benzonatate (Benzonatate 100 Mg Capsule) 200 mg PO TID PRN PRN Reason: Cough Dexamethasone Sodium Phosphate (Dexamethasone Sod Phosphate 4 Mg/Ml Vial) 6 mg IVPUSH DAILY [facility] Last Admin: 01/04/21 08:19 Dose: 6 mg Documented by: CED Enoxaparin Sodium (Enoxaparin Sodium 40 Mg/0.4 Ml Syringe) 40 mg SUBCUT Q24H [facility] Last Admin: 01/03/21 19:40 Dose: 40 mg Documented by: MARIE Famotidine (Famotidine 20 Mg Tablet) 40 mg PO BID [facility] Last Admin: 01/04/21 08:19 Dose: 40 mg Documented by: CED Guaifenesin/Codeine Phosphate (Guaifen/Codeine Sf 200/20/10ml 10 Ml Liquid) 5 ml PO Q6H [facility] Last Admin: 01/04/21 08:20 Dose: 5 ml Documented by: CED Loratadine (Loratadine 10 Mg Tablet) 10 mg PO DAILY [facility] Last Admin: 01/04/21 08:20 Dose: 10 mg Documented by: CED Pharmacy Consult (Consult Rx Perform Med Rec) 1 each MISCELLANE ONCE PRN PRN Reason: Consult order Pharmacy Consult (Consult Rx Vancomycin Dosing) 1 each MISCELLANE DAILY PRN PRN Reason: Consult order Sodium Chloride (0.9 % Sodium Chloride Flush 3 Ml Syringe) 3 ml IVFLUSH QSHIFT [facility] Last Admin: 01/04/21 08:20 Dose: 3 ml Documented by: CED Zinc Sulfate (Zinc Sulfate 220 Mg Capsule) 220 mg PO DAILY [facility] Last Admin: 01/04/21 08:20 Dose: 220 mg Documented by: CED Labs CBC & Chem 7: 12/31/20 10:44 01/03/21 05:59 Labs: Laboratory Results - last 24 hr 01/03/21 01/03/21 14:43 Unknown Stool Leukocytes, Qual NEGATIVE C. difficile Tox B Gene NEGATIVE Microbiology Microbiology Results: Microbiology 01/03/21 14:43 Stool Culture - Preliminary Stool Normal so far. Assessment and Plan (1) COVID-19: Status: Acute (2) Hypoxia: Status: Acute Assessment and Plan: 1. Acute hypoxemic respiratory failure secondary to possible? COVID pneumonia. Repeated COVID negative but he was positive for COVID pcr on 12/23 rews panel -positive covid pcr on 12/31 sars cov-2 IgG Postitive on 12/31 CT and negative for PE blood culture cultures neg off IV broad-spectrum antibiotic coverage for now until blood cultures come negative. Diarrhea probably related to COVID, stool studies-c diff and stool cultures negative. Id eval and pulm d/w : sob and hypoxia improving , down to 6 liter -taper down Started on 5/10 dexamethasone, high-flow oxygen, zinc, Pepcid,He is too far out for Remdesivir symtoms for 14 days. 2. Morbid obesity discussed with the patient in detail encouraged for weight loss. 3. DVT prophylaxis with Lovenox Quality Stroke Does the patient have a stroke diagnosis?: No VTE Prior VTE?: No VTE Risk Level:: Medical - moderate - high VTE Device Contraindication: N/A - Device Ordered VTE Drug Contraindication: N/A - Med Ordered
[2021-01-04] MEDS: Enoxaparin Sodium 40 MG/0.4 ML SYRINGE SUBCUT (17:39)
[2021-01-05] VITALS (8 sets, daily range): BP systolic 105–137; BP diastolic 58–82; PULSE 70–91; RESP 18–20; TEMP 36.5–36.7; O2SAT 92–98
[2021-01-05 06:48] LABS: C Reactive Protein 1.44 mg/dL (< or = 0.50); Lactate Dehydrogenase 383 U/L (118-273)
[2021-01-05] MEDS: Ascorbic Acid 500 MG TABLET PO (07:50)
[2021-01-05] MEDS: Loratadine 10 MG TABLET PO (07:50)
[2021-01-05] MEDS: guaiFEN/Codeine SF 200/20/10ML 10 ML LIQUID 5 ML PO ×2 (07:50→20:44)
[2021-01-05] MEDS: Famotidine 20 MG TABLET 40 MG PO ×2 (07:50→20:44)
[2021-01-05] MEDS: dexAMETHasone sod phosphate 4 MG/ML VIAL 6 MG IVPUSH (07:50)
[2021-01-05] MEDS: Zinc Sulfate 220 MG CAPSULE PO (07:51)
--- NOTE | 2021-01-05 10:44 | P.PNIM_ITS ---
Subjective Subjective Date of Service: 01/05/21 Interval History: Acute hypoxemic respiratory failure secondary to COVID. Review of Systems Shortness of breath seems improving day-by-day, denies any cough or nausea or vomiting or abdominal pain or diarrhea. Physical Exam Vital Signs: Vital Signs: Last Vital Signs Temp 97.7 F 01/05/21 07:47 Pulse 72 01/05/21 07:47 Resp 20 01/05/21 07:47 BP 116/60 01/05/21 07:47 Pulse Ox 94 01/05/21 08:22 Body Mass Index 37.3 ? Appearance: Alert.? Oriented X3.?sob improving.? Eyes: Pupils equal, round and reactive to light.? Sclera nonicteric.? ENT: Pharynx normal.? Moist mucous membranes. cvs: rrr, [id number] res:? Air entry faimrpoving better than yesterday,no wheezing or rhonchiii. abd: no rebound or guarding ,nt, bs present. ext pulses present , no cyanosis neuro: axo3 , nonfocal. Objective Data Active Medications Acetaminophen (Acetaminophen 325 Mg Tablet) 650 mg PO Q6H PRN PRN Reason: Pain, Mild (Pain Scale 1-3) Ascorbic Acid (Ascorbic Acid 500 Mg Tablet) 500 mg PO DAILY [facility] Last Admin: 01/05/21 07:50 Dose: 500 mg Documented by: CED Benzonatate (Benzonatate 100 Mg Capsule) 200 mg PO TID PRN PRN Reason: Cough Dexamethasone Sodium Phosphate (Dexamethasone Sod Phosphate 4 Mg/Ml Vial) 6 mg IVPUSH DAILY [facility] Last Admin: 01/05/21 07:50 Dose: 6 mg Documented by: CED Enoxaparin Sodium (Enoxaparin Sodium 40 Mg/0.4 Ml Syringe) 40 mg SUBCUT Q24H [facility] Last Admin: 01/04/21 17:39 Dose: 40 mg Documented by: AC Famotidine (Famotidine 20 Mg Tablet) 40 mg PO BID [facility] Last Admin: 01/05/21 07:50 Dose: 40 mg Documented by: CED Guaifenesin/Codeine Phosphate (Guaifen/Codeine Sf 200/20/10ml 10 Ml Liquid) 5 ml PO Q6H [facility] Last Admin: 01/05/21 07:50 Dose: 5 ml Documented by: CED Loratadine (Loratadine 10 Mg Tablet) 10 mg PO DAILY [facility] Last Admin: 01/05/21 07:50 Dose: 10 mg Documented by: CED Pharmacy Consult (Consult Rx Perform Med Rec) 1 each MISCELLANE ONCE PRN PRN Reason: Consult order Pharmacy Consult (Consult Rx Vancomycin Dosing) 1 each MISCELLANE DAILY PRN PRN Reason: Consult order Sodium Chloride (0.9 % Sodium Chloride Flush 3 Ml Syringe) 3 ml IVFLUSH QSHIFT [facility] Last Admin: 01/04/21 21:22 Dose: 3 ml Documented by: APOLLO Zinc Sulfate (Zinc Sulfate 220 Mg Capsule) 220 mg PO DAILY [facility] Last Admin: 01/05/21 07:51 Dose: 220 mg Documented by: CED Labs CBC & Chem 7: 12/31/20 10:44 01/03/21 05:59 Labs: Laboratory Results - last 24 hr 01/05/21 06:06 Lactate Dehydrogenase 383 H C-Reactive Protein 1.44 H Microbiology Microbiology Results: Microbiology 01/03/21 14:43 Stool Culture - Preliminary Stool Normal so far. Assessment and Plan (1) COVID-19: Status: Acute (2) Hypoxia: Status: Acute Assessment and Plan: 1. Acute hypoxemic respiratory failure secondary to possible? COVID pneumonia. Repeated COVID negative but he was positive for COVID pcr on 12/23 rews panel -positive covid pcr on 12/31 sars cov-2 IgG Postitive on 12/31 CT and negative for PE ?blood culture cultures neg off IV broad-spectrum antibiotic coverage for now until blood cultures come negative. Diarrhea probably related to COVID,? stool studies-c diff and stool cultures negative. Id eval and pulm d/w : sob and hypoxia improving , down to 6 liter -taper down Started on 5/10 dexamethasone, oxygen demand improved significantly now on 3liter -will continue to taper down if does not go off oxygen then may need home oxygen eval in am, zinc, Pepcid,He is too far out for Remdesivir symtoms for 14 days. 2. Morbid obesity discussed with the patient in detail encouraged for weight loss. 3. DVT prophylaxis with Lovenox Quality Stroke Does the patient have a stroke diagnosis?: No VTE Prior VTE?: No VTE Risk Level:: Medical - moderate - high VTE Device Contraindication: N/A - Device Ordered VTE Drug Contraindication: N/A - Med Ordered
[2021-01-05] MEDS: Enoxaparin Sodium 40 MG/0.4 ML SYRINGE SUBCUT (17:02)
[2021-01-05] MEDS: 0.9 % Sodium Chloride Flush 3 ML SYRINGE IVFLUSH (20:44)
[2021-01-06 03:40] VITALS: BP 113/63; PULSE 86; RESP 20; TEMP 36.6; O2SAT 94
[2021-01-06 07:10] VITALS: BP 116/69; PULSE 84; RESP 18; TEMP 35.5; O2SAT 92
[2021-01-06] MEDS: Zinc Sulfate 220 MG CAPSULE PO (08:31)
[2021-01-06] MEDS: Loratadine 10 MG TABLET PO (08:31)
[2021-01-06] MEDS: Ascorbic Acid 500 MG TABLET PO (08:31)
[2021-01-06] MEDS: guaiFEN/Codeine SF 200/20/10ML 10 ML LIQUID 5 ML PO (08:31)
[2021-01-06] MEDS: 0.9 % Sodium Chloride Flush 3 ML SYRINGE IVFLUSH (08:31)
[2021-01-06] MEDS: Famotidine 20 MG TABLET 40 MG PO (08:31)
--- NOTE | 2021-01-06 09:41 | MHC.CM.PN ---
Addendum entered by Tenisha Massey 01/06/21 13:40: Patient is discharged today. Family is providing transportation to home. Original Note: Male 35 DX Covid+ Patient has been weaned off of Oxygen. Anticipate discharge today. He will need a home o2 eval. If he qualifies for oxygen RT will arrange. DP home with family assist and transportation.
--- NOTE | 2021-01-06 11:03 | PM.DS ---
DS: Providers Provider Date of Service: 01/06/21 Date of admission: 12/31/20 15:53 Primary care physician: Skip Knapp PA-C Consults: 12/31/20 15:49 Consult to Pulmonology Routine Consulting Provider: Jw Whiteside Reason for consultation: acute hypoxemic respiratory failure sec to covid Has provider been notified: No 12/31/20 15:50 Consult to Infectious Diseases Routine Consulting Provider: Rhona Bates Reason for consultation: acute hypoxemic respiratory failure sec to covid Has provider been notified: No DS: Diagnosis Discharge Diagnosis (1) COVID-19: Status: Acute (2) Hypoxia: Status: Acute DS: Summary Hospital Course Hospital Course: 35-year-old male came to the hospital because of worsening shortness of breath as per the patient he had outpatient COVID test done last week which was positive and subsequently was falling short of breath and came to the hospital to 3 days back and that time was not requiring oxygen so was sent back home, subsequently his shortness of breath worsening has some cough -came to the hospital. He says that he has these symptoms from week week and half, he never got COVID vaccine. Denies any chest pain or nausea vomiting or abdominal pain but has diarrhea. Denies chills or weakness or numbness or headache Has mild tachycardia and tachypnea. He says his shortness of breath slightly improving since he came to the hospital-received dexamethasone, antibiotics including Vanco and cefepime, acetaminophen. Lab imaging EKG : Has lymphopenia, no leukocytosis, VBG:? PH is 7.48, pCO2 38, PO2 is 51 Chemistry ladnon BUN is 8 creatinine 1.075 fingersticks is 106 Low-grade fever Elevated AST and ALT in 60-80 range range Elevated LDH 811 and C reactive protein is 19.7 troponin 10.4 EKG shows sinus bradycardia no ST changes cta:? Negative for any central pulmonary embolism, mediastinal and hilar lymphadenopathy probably reactive. Hospital course: Patient came to the hospital because of acute hypoxemic respiratory failure for due to multifocal pneumonia related to COVID. Initially was started on IV antibiotics because COVID rapid test was negative but subsequently respiratory panel came positive for COVID infection. Patient was on high-flow, dexamethasone, IV antibiotic was stopped after blood culture negative. Patient improved with supportive care. Now off oxygen and asymptomatic Going home with p.o. dexamethasone. He had mild elevated LFTs which are improving, probably elevation of elevated related to COVID, will repeat liver functions 1 week with PCP and further management outpatient. Please repeat chest imaging study in 3-4 week time to see resolution of pneumonia with PCP further management as per PCP outpatient. Above management discussed with the patient in detail length he understand and in agreement with the above plan, time spent 50 minutes and 50% time spent on counseling. Significant findings: As above. Procedures performed: None. Treatment and response: As above. Complications: None. Time Spent with Patient Time attestation: Total time spent providing and/or coordinating discharge services: Discharge coordination time: Greater than 30 minutes Quality: Stroke Does the patient have a stroke diagnosis?: No Physical Exam Vital Signs: Vital Signs: Last Vital Signs Temp 96 F L 01/06/21 07:10 Pulse 84 01/06/21 07:10 Resp 18 01/06/21 07:10 BP 116/69 01/06/21 07:10 Pulse Ox 92 01/06/21 07:10 Body Mass Index 37.3 Appearance: Alert.? Oriented X3.?sob improving.? Eyes: Pupils equal, round and reactive to light.? Sclera nonicteric.? ENT: Pharynx normal.? Moist mucous membranes. cvs: rrr, [id number] res:? Air entry fair ,no wheezing or rhonchiii. abd: no rebound or guarding ,nt, bs present. ext pulses present , no cyanosis neuro: axo3 , nonfocal. DS: Data Additional Comments Additional comments: cxr: IMPRESSION: New multifocal airspace opacities concerning for a multifocal infection. Correlate clinically and follow-up to ensure resolution. ? CTA: IMPRESSION: As above, evaluation of pulmonary emboli is significantly limited. However, accounting for these limitations, no central pulmonary emboli are identified. ? There are extensive multifocal airspace opacities, worrisome for multifocal pneumonia. ? Mediastinal and hilar lymphadenopathy is likely reactive. ? Hepatic steatosis. ? VTE: indeterminate. Stool and blood culture negative. Discharge Plan Discharge Patient Disposition: Home, Self-Care Discharge Diagnosis: Acute hypoxemic respiratory failure secondary to COVID infection. Referrals: Skip Knapp PA-C [Primary Care Provider] - 1 Week Discharge Medications: New loratadine 10 mg Tablet 10 mg PO DAILY Qty: 7 RF: 0 dexamethasone 6 mg tablet 6 mg PO DAILY Qty: 4 RF: 0 omeprazole 20 mg capsule,delayed release(DR/EC) 20 mg PO DAILY Qty: 30 RF: 0 Continued oxcarbazepine 300 mg tablet 600 mg PO BEDTIME RF: 0 ondansetron HCl [Zofran] 4 mg tablet 4 mg PO Q8H PRN (Reason: nausea and vomiting) Qty: 10 RF: 0 zolpidem 10 mg tablet 10 mg PO BEDTIME PRN (Reason: insomnia) RF: 0 oxcarbazepine 300 mg tablet 300 mg PO DAILY RF: 0 prazosin 5 mg capsule 10 mg PO BEDTIME RF: 0 olanzapine 15 mg tablet 15 mg PO BEDTIME RF: 0 clonazepam 1 mg tablet 1 mg PO TID PRN (Reason: Anxiety) RF: 0 sertraline 100 mg tablet 200 mg PO DAILY RF: 0 perphenazine 8 mg tablet 8 mg PO BID RF: 0 Discharge Orders: Discharge Order (Routine); Ordered 01/06/21 Ordered By: Avery Linares Diet: advance to usual diet Activity on Discharge: As tolerated Stand Alone Forms: Patient Portal Discharge page Care Plan Goals: Patient came to the hospital because of acute hypoxemic respiratory failure for due to multifocal pneumonia related to COVID. Initially was started on IV antibiotics because COVID rapid test was negative but subsequently respiratory panel came positive for COVID infection. Patient was on high-flow, dexamethasone, IV antibiotic was stopped after blood culture negative. Patient improved with supportive care. Now off oxygen and asymptomatic Going home with p.o. dexamethasone. He had mild elevated LFTs which are improving, probably elevation of elevated related to COVID, will repeat liver functions 1 week with PCP and further management outpatient. Please repeat chest imaging study in 3-4 week time to see resolution of pneumonia with PCP further management as per PCP outpatient. Health Concerns: As above. Plan of Treatment: As above. Assessment: As above.
[2021-01-06] MEDS: dexAMETHasone 6 MG TABLET PO (14:02)
== END 2021-01-06 14:25 | disposition home or self-care (01) | DRG 177 ==
LOC: HO.ED 13:29 → HO.EDOVER 16:02 → HO.IMC 17:24 → HO.EDOVER 18:52 → HO.IMC 19:08
PROVIDERS: Admitting Provider Internal Medicine; Emergency Provider Emergency Medicine; PCP Physician Assistant; Visit Provider Internal Medicine
DX: U07.1 COVID-19 (principal); J80 Acute respiratory distress syndrome; J12.82 Pneumonia due to coronavirus disease 2019; F41.9 Anxiety disorder, unspecified; F32.A Depression, unspecified; E66.01 Morbid (severe) obesity due to excess calories; Z68.37 Body mass index [BMI] 37.0-37.9, adult; Z88.5 Allergy status to narcotic agent; Z79.899 Other long term (current) drug therapy
CPT/HCPCS: 36415; 71045; 71275; 80048; 80076; 80202; 82565; 82728; 82803; 82947; 83605; 83615; 83735; 84145; 84484; 85025; 85379; 85610; 85730; 86140; 86769; 87040; 87045; 87046; 87493; 87633; 87635; 89055; 93005; 96365; 96375; 99285; 99291; J0692; J1100; J1650; J3370; J8540; Q9967

== ENCOUNTER 2021-01-13 12:04 | Outpatient (REF) | payer OTHER, SELFPAY ==
--- NOTE | ~2021-01-13 | XR_ITS ---
EXAMINATION: XR CHEST CLINICAL INFORMATION: Covid infection COMPARISON: Previous chest x-ray and chest CTA 12/31/2020 TECHNIQUE: 2 views of the chest were obtained. FINDINGS: The cardiac and mediastinal contours are stable. The lung volumes are low. There are bilateral infiltrates. May be slightly improved compared to previous exam 12/31/2020. There is no pleural effusion or pneumothorax. Bony structures are unremarkable. XR/XR chest 2V IMPRESSION: Low lung volumes. Bilateral infiltrates, question slightly improved from most recent exam 12/31/2020.
[2021-01-13 13:48] LABS: Alanine Aminotransferase 111 U/L (0-40); Albumin Level 3.7 g/dL (3.5-5.0); Alkaline Phosphatase 110 U/L (39-117); Aspartate Amino Transferase 19 U/L (5-37); Bilirubin Direct < 0.2 mg/dL (0.0-0.5); Bilirubin Total 0.3 mg/dL (0.0-1.0); Total Protein 6.7 g/dL (6.5-8.0)
== END 2021-01-13 12:05 | disposition home or self-care (01) ==
LOC: HO.XRAY 12:04
PROVIDERS: PCP Physician Assistant; Visit Provider Nurse Practitioner Family
DX: R79.89 Other specified abnormal findings of blood chemistry (principal); K76.0 Fatty (change of) liver, not elsewhere classified; U07.1 COVID-19; R06.02 Shortness of breath; R05.9 Cough, unspecified
CPT/HCPCS: 36415; 71046; 80076

== ENCOUNTER 2021-02-07 10:00 | Outpatient (REF) | payer OTHER, SELFPAY ==
--- NOTE | ~2021-02-07 | US_ITS ---
EXAMINATION: US ABDOMEN COMPLETE CLINICAL INFORMATION: Other specified abnormal findings of blood chemistry. COMPARISON: CTA chest 12/31/2020. TECHNIQUE: Real-time imaging of the abdominal viscera. FINDINGS: PANCREAS: Normal. ABDOMINAL AORTA: The proximal, mid, and distal segments are normal in caliber. INFERIOR VENA CAVA: Visualized portions are normal. LIVER: The liver is normal in size. The liver contour is normal. Liver diffusely echogenic suggesting hepatic steatosis, hypoechoic area near the gallbladder likely focal fat sparing. No focal hepatic lesion. There is no intrahepatic biliary duct dilatation seen. GALLBLADDER: There is a ring down artifact from the gallbladder wall suggesting adenomatosis. The gallbladder is physiologically distended without evidence of stones, sludge, polyps, wall thickening or pericholecystic fluid. COMMON BILE DUCT: Normal in caliber measuring 0.4 cm in diameter. RIGHT KIDNEY: Normal. No hydronephrosis. No renal calculi or focal parenchymal lesions. The kidney measures 10.9 cm in maximum dimension. LEFT KIDNEY: There is a simple cyst left kidney measures 6 x 6 x 7 mm. No hydronephrosis or renal calculi. The kidney measures 10.7 cm in maximum dimension. SPLEEN: Normal. The spleen measures 10.1 cm in maximum dimension. FREE FLUID: None. US/US abdomen complete IMPRESSION: *Diffusely echogenic liver suggesting hepatic steatosis. *Hypoechoic area in the liver adjacent to the gallbladder the location is common for focal fat sparing *Ringdown artifact from the gallbladder wall suggesting adenomyomatosis. *Simple cyst left kidney.
== END 2021-02-07 10:01 | disposition home or self-care (01) ==
LOC: HO.HMGCX 10:00
PROVIDERS: PCP Physician Assistant; Visit Provider Nurse Practitioner Family
DX: R79.89 Other specified abnormal findings of blood chemistry (principal); K76.0 Fatty (change of) liver, not elsewhere classified
CPT/HCPCS: 76700

== ENCOUNTER 2021-02-10 13:58 | Outpatient (REF) | payer OTHER, SELFPAY ==
--- NOTE | ~2021-02-10 | XR_ITS ---
EXAMINATION: XR CHEST CLINICAL INFORMATION: COVID-19. COMPARISON: Chest x-rays of 01/13/2021, 12/31/2020, 12/27/2020. CT chest 12/31/2020. TECHNIQUE: 2 views of the chest were obtained. FINDINGS: Cardiomediastinal silhouette is stable and normal. No abnormal tracheal deviation. There is moderate to significant interval resolution of bilateral patchy airspace and hazy opacities with probable mild persistent changes. No evidence of pleural effusions, pulmonary edema or pneumothorax. Regional skeleton is intact. Visualized upper abdomen is unremarkable. XR/XR chest 2V IMPRESSION: [id number] interval improvement of multifocal bilateral scattered airspace opacities with probable mild persistent changes. No new airspace opacities.
[2021-02-10 14:58] LABS: Alanine Aminotransferase 72 U/L (0-40); Albumin Level 4.2 g/dL (3.5-5.0); Alkaline Phosphatase 110 U/L (39-117); Amylase 54 U/L (28-100); Aspartate Amino Transferase 30 U/L (5-37); Bilirubin Direct < 0.2 mg/dL (0.0-0.5); Bilirubin Total < 0.2 mg/dL (0.0-1.0); Cholesterol 168 mg/dL; Gamma Glutamyl Transpeptidase 35 U/L (11-51); HDL Cholesterol 35 mg/dL; Lipase 30 U/L (8-78); Total Protein 7.8 g/dL (6.5-8.0); Triglycerides 576 mg/dL
== END 2021-02-10 13:59 | disposition home or self-care (01) ==
LOC: HO.LAB 13:58
PROVIDERS: PCP Physician Assistant; Visit Provider Nurse Practitioner Family
DX: U07.1 COVID-19 (principal); K76.0 Fatty (change of) liver, not elsewhere classified; R79.89 Other specified abnormal findings of blood chemistry; E78.00 Pure hypercholesterolemia, unspecified
CPT/HCPCS: 36415; 71046; 80061; 80076; 82150; 82977; 83690

== ENCOUNTER → 2021-03-26 15:18 | Outpatient (BNVA) | payer OTHER, SELFPAY | PROVIDERS: PCP Physician Assistant; Visit Provider Internal Medicine Pulmonary Disease | DX: U09.9 Post COVID-19 condition, unspecified (principal) | CPT/HCPCS: 99202 ==

== ENCOUNTER 2022-01-09 14:25 | Outpatient (REF) | payer OTHER, SELFPAY ==
[2022-01-09 15:45] LABS: Influenza A PCR NEGATIVE (Negative); Influenza B PCR NEGATIVE (Negative); Resp Syncy Virus RNA Qual PCR POSITIVE (Negative); SARS COV2 PCR INHOUSE NEGATIVE (Negative)
== END 2022-01-09 14:26 | disposition home or self-care (01) ==
LOC: HO.LNP 14:25
PROVIDERS: Visit Provider Nurse Practitioner Family
DX: J06.9 Acute upper respiratory infection, unspecified (principal); Z20.822 Contact with and (suspected) exposure to COVID-19
CPT/HCPCS: 0241U

== ENCOUNTER → 2022-01-29 08:58 | Outpatient (BNVA) | payer OTHER, SELFPAY | PROVIDERS: PCP Physician Assistant; Visit Provider Surgery | DX: Z01.818 Encounter for other preprocedural examination (principal); L98.9 Disorder of the skin and subcutaneous tissue, unspecified | CPT/HCPCS: 99202 ==

== ENCOUNTER 2022-06-11 11:16 | Outpatient (REF) | payer OTHER, SELFPAY | END 2022-06-11 11:17 | disposition home or self-care (01) | LOC: HO.LNP 11:16 | PROVIDERS: PCP Physician Assistant; Visit Provider Surgery | DX: L82.1 Other seborrheic keratosis (principal) | CPT/HCPCS: 11420; 11423; 11424; 88305 ==

== ENCOUNTER → 2022-06-22 14:57 | Outpatient (BNVA) | payer OTHER, SELFPAY | PROVIDERS: PCP Physician Assistant; Visit Provider Surgery | DX: Z48.817 Encounter for surgical aftercare following surgery on the skin and subcutaneous tissue (principal); Z87.2 Personal history of diseases of the skin and subcutaneous tissue; Z98.890 Other specified postprocedural states | CPT/HCPCS: 99212 ==

== ENCOUNTER 2022-12-10 11:11 | Outpatient (AMB) | payer OTHER, SELFPAY ==
[2022-12-10 11:28] VITALS: BP 130/78; PULSE 88; TEMP 37.2; O2SAT 98; BMI 41.0
--- NOTE | 2022-12-10 11:28 | AM.OFFWIN_ITS ---
Intake Vital Signs 12/10/22 11:28 Height 5 ft 6 in Weight 254 lb BMI 41.0 BP 130/78 Blood Pressure Location Rt brachial Position Sitting Pulse 88 Pulse Source Pulse Oximeter Temp 98.9 F Temp Source Temporal Artery Scan Pulse Oximetry (%) 98 Intake Visit Reasons: EP Flu like symptoms (masked) Intake Note: pt is here for c/o fever, headache, body ache, cough, runny nose Patient Tobacco Use Status: Never used Tobacco Allergies codeine [CODEINE] Allergy (Severe, Verified 12/10/22 11:28) THROAT SWELLING/RASH latex [LATEX] Allergy (Intermediate, Verified 12/10/22 11:28) RASH Sulfa (Sulfonamide Antibiotics) Allergy (Intermediate, Verified 12/10/22 11:28) throat swelling Do you need a note to return to daycare/school/sports/work: Yes HPI EP Flu like symptoms (masked) HPI Details Patient presents with 7 days of headache, bodyaches, cough with yellow sputum, nasal congestion, on/off fever. Reports his daughter and girlfriend had similar illness however recovered quickly. Covid tests at home have been negative. Denies any shortness of breath or GI symptoms. [facility] Medical History Skin lesion of neck Anxiety Depression Surgical History H/O local excision of skin lesion (06/11/22) History of surgery on arm Social History Household Members: Spouse Housing: Apartment Do you presently have visiting nurse or other home services: No Alcohol intake: never Patient Tobacco Use Status: Never used Tobacco e-Cigarette/Vaping Use: Never Used Second Hand Smoke Exposure: No service: No Current occupational status: employed Current occupation: [employer] Cognitive needs: No Hearing needs: No Vision needs: No Review of Systems Const All systems reviewed & are unremarkable except as noted in HPI and below Physical Exam Vital Signs: Last Vital Signs Temp 98.9 F 12/10/22 11:28 Pulse 88 12/10/22 11:28 BP 130/78 12/10/22 11:28 Pulse Ox 98 12/10/22 11:28 BMI result Body Mass Index 41.0 Const General: cooperative and ill appearing (mild) acutely HEENT Head: Yes normal to inspection Ears: hearing grossly normal bilaterally, external ears normal and TM's normal bilaterally General nose exam: Normal external nose present and Normal nasal mucous membranes and turbinates present Face and sinus: Yes normal facial exam and Yes sinuses nontender Mouth: Normal oral and palatal mucosa present and moist mucous membranes Throat: Yes posterior oropharynx abnormal (Erythema) Neck Neck: Yes no lymphadenopathy Resp Effort & Inspection: normal respiratory effort and able to speak in complete sentences Auscultation: clear to auscultation bilaterally Cardio Jugular venous distension: no JVD Palpation: normal PMI Rate: regular rate Rhythm: regular rhythm Skin General skin exam: no rashes or lesions noted Extrem General: Yes no clubbing, cyanosis or edema Psych Appearance: grossly normal Mental Status: mental status grossly normal Speech and movement: Normal speech and movement present Assessment & Plan Assessment & Plan (1) Upper respiratory tract infection: Code(s): J06.9 - Acute upper respiratory infection, unspecified Qualifiers: URI type: unspecified URI Qualified Code(s): J06.9 - Acute upper respiratory infection, unspecified Plan: Greater than 7 day history ongoing upper respiratory symptoms. Declines viral testing. Advised rest, hydration, and he may continue [id number] cold/flu medication for symptom treatment. Also will start him on a short course of azithromycin. We reviewed indications, use, possible s/e of this. If he does not improve with time and these measures, he should return to the clinic for further evaluation. Patient agrees to plan. Medications: New azithromycin For 250 mg dose pack: take 500 mg today (day 1), then 250 mg for 4 days (days 2-5) PO 6 tabs 0RF J06.9 - Acute upper respiratory infection, unspecified Coding Level of Care Code Est Pt Level 3 (06187) Diagnoses Upper respiratory tract infection, unspecified type J06.9 URI type: unspecified URI
== END 2022-12-10 12:01 | disposition home or self-care (01) ==
PROVIDERS: PCP Physician Assistant; Visit Provider Nurse Practitioner Family
DX: J06.9 Acute upper respiratory infection, unspecified (principal)
CPT/HCPCS: 99213

== ENCOUNTER 2023-04-27 09:44 | Outpatient (AMB) | payer OTHER, SELFPAY ==
--- NOTE | 2023-04-27 11:23 | MHC.OFFWIV ---
Intake Vital Signs 04/27/23 11:24 Height 5 ft 6 in Weight 253 lb 3 oz BMI 40.9 BP 126/98 H Blood Pressure Location Rt brachial Position Sitting Pulse 100 Pulse Source Pulse Oximeter Temp 97.8 F Temp Source Oral Pulse Oximetry (%) 98 Oxygen Delivery Method Room Air Intake Visit Reasons: EP harsh cough/kids flu [id number] Intake Note: pt is here today for harsh cough that has been present for about 2 days. Patient Tobacco Use Status: Never used Tobacco Allergies codeine [CODEINE] Allergy (Severe, Verified 04/27/23 11:40) THROAT SWELLING/RASH latex [LATEX] Allergy (Intermediate, Verified 04/27/23 11:40) RASH Sulfa (Sulfonamide Antibiotics) Allergy (Intermediate, Verified 04/27/23 11:40) throat swelling Do you need a note to return to daycare/school/sports/work: No HPI HPI Comments History of Present Illness Details This is a 37-year-old male with no stated past medical history presenting for evaluation of a cough that he has had for the past 2 days associated with a fever that he had yesterday. Patient states that his 2 children were diagnosed with influenza yesterday. Patient reports a mild sore throat with a dry cough. Patient has not taken any medication for treatment of his symptoms. Patient denies having any ear pain, difficulty swallowing, chest pain or shortness of breath. [facility] Medical History Skin lesion of neck Anxiety Depression Surgical History H/O local excision of skin lesion (06/11/22) History of surgery on arm Social History Household Members: Spouse Housing: Apartment Do you presently have visiting nurse or other home services: No Alcohol intake: never Patient Tobacco Use Status: Never used Tobacco e-Cigarette/Vaping Use: Never Used Second Hand Smoke Exposure: No service: No Current occupational status: employed Current occupation: [employer] department Cognitive needs: No Hearing needs: No Vision needs: No Review of Systems Const All systems reviewed & are unremarkable except as noted in HPI and below Reports no additional complaints, Denies chills and Reports fever(s) Eyes Reports as per HPI ENT Reports as per HPI Card Reports as per HPI Resp Reports as per HPI Musc Reports no additional complaints Psych Reports no additional complaints Physical Exam Vital Signs: Last Vital Signs Temp 97.8 F 04/27/23 11:24 Pulse 100 04/27/23 11:24 BP 126/98 H 04/27/23 11:24 Pulse Ox 98 04/27/23 11:24 Oxygen Delivery Method Room Air 04/27/23 11:24 BMI result Body Mass Index 40.9 Afebrile. Const General: cooperative, comfortable, no acute distress, well developed, alert and awake; No lethargic Nutritional Appearance: average body habitus Orientation/consciousness: patient oriented x3 and No lethargic Limitations: no limitations HEENT Head: Yes normal to inspection and Yes normocephalic Ears: hearing grossly normal bilaterally, external ears normal, right TM abnormal (mild erythema without bulging; canal is clear), TM normal on the left and EAC's normal General nose exam: Normal external nose present Face and sinus: Yes normal facial exam and Yes sinuses nontender Mouth: Normal oral and palatal mucosa present and moist mucous membranes Throat: Yes posterior oropharynx normal Eyes General: appearance normal, both eyes and all related structures Resp Effort & Inspection: normal respiratory effort, no audible wheezes, no cough and no respiratory distress Auscultation: clear to auscultation bilaterally Cardio Rate: regular rate Rhythm: regular rhythm Neuro General: patient oriented x3 Psych Appearance: grossly normal Mental Status: mental status grossly normal Insight: Good insight present (Psych) Judgement: Good judgement present (Psych) Assessment & Plan Assessment & Plan (1) Exposure to influenza: Comment: Given that this patient has exposure to influenza in his home, Tamiflu will be prescribed. Code(s): Z20.828 - Contact with and (suspected) exposure to other viral communicable diseases Plan: Tamiflu b.i.d. x5 days. (2) Cough with fever: Comment: SARS panel is ordered and pending. Code(s): R05.9 - Cough, unspecified; R50.9 - Fever, unspecified Plan: Ibuprofen or Tylenol as needed if fevers recur, increase fluids daily, Mucinex as needed. Orders: Orders SARS-CoV2/FLU/RSV Today R05.9 - Cough, unspecified, R50.9 - Fever, unspecified, Z20.828 - Contact with and (suspected) exposure to other viral communicable diseases Medications: New oseltamivir (Tamiflu) 75 mg PO BID 5 days 10 caps 0RF Coding Level of Care Code Est Pt Level 3 (46298) Diagnoses Exposure to influenza Z20.828 Cough with fever R05.9; R50.9 Time Spent (min) 20
[2023-04-27 11:24] VITALS: BP 126/98; PULSE 100; TEMP 36.6; O2SAT 98; BMI 40.9
== END 2023-04-27 12:22 | disposition home or self-care (01) ==
PROVIDERS: PCP Physician Assistant; Visit Provider Physician Assistant
DX: Z20.828 Contact with and (suspected) exposure to other viral communicable diseases (principal); R05.9 Cough, unspecified; R50.9 Fever, unspecified
CPT/HCPCS: 99213

== ENCOUNTER 2023-04-27 13:43 | Outpatient (REF) | payer OTHER, SELFPAY ==
[2023-04-27 15:35] LABS: Influenza A PCR NEGATIVE (Negative); Influenza B PCR NEGATIVE (Negative); Resp Syncy Virus RNA Qual PCR NEGATIVE (Negative); SARS COV2 PCR INHOUSE NEGATIVE (Negative)
== END 2023-04-27 13:44 | disposition home or self-care (01) ==
LOC: HO.HMGCLNP 13:43
PROVIDERS: Visit Provider Physician Assistant
DX: R05.9 Cough, unspecified (principal); R50.9 Fever, unspecified; Z20.828 Contact with and (suspected) exposure to other viral communicable diseases
CPT/HCPCS: 0241U

== ENCOUNTER 2025-01-18 09:02 | Outpatient (REF) | payer OTHER, SELFPAY ==
[2025-01-18 14:40] LABS: Resp Syncy Virus RNA Qual PCR NEGATIVE (Negative); SARS COV2 PCR INHOUSE NEGATIVE (Negative)
== END 2025-01-18 09:03 | disposition home or self-care (01) ==
LOC: HO.LAB 09:02
PROVIDERS: Nurse Practitioner Family; PCP Physician Assistant
DX: J06.9 Acute upper respiratory infection, unspecified (principal)
CPT/HCPCS: 87637; 99212

== ENCOUNTER 2025-01-18 09:02 | Outpatient (AMB) | payer OTHER, SELFPAY ==
[2025-01-18 09:11] VITALS: BP 124/82; PULSE 103; TEMP 37.3; O2SAT 96; BMI 40.3
--- NOTE | 2025-01-18 09:11 | AM.OFFWIN_ITS ---
Intake Vital Signs 01/18/25 09:11 Height 5 ft 6 in Weight 250 lb BMI 40.3 BP 124/82 Blood Pressure Location Lt brachial Position Sitting Pulse 103 H Pulse Source Pulse Oximeter Temp 99.1 F Temp Source Oral Pulse Oximetry (%) 96 Oxygen Delivery Method Room Air Intake Visit Reasons: EP-ears pain, running nose, fever, body ache Intake Note: Patient presents c/o bilateral ear pain, body aches, fever, runny nose, cough x1 week. Patient Tobacco Use Status: Never used Tobacco Allergies codeine (CODEINE) Allergy (Severe, Verified 01/18/25 09:13) THROAT SWELLING/RASH latex (LATEX) Allergy (Intermediate, Verified 01/18/25 09:13) RASH Sulfa (Sulfonamide Antibiotics) Allergy (Intermediate, Verified 01/18/25 09:13) throat swelling Do you need a note to return to daycare/school/sports/work: No HPI HPI Comments History of Present Illness Details 39 y/o male presents with URI symptoms f or 1 week. Reports bilateral ear pain, body aches, fever, runny nose, and cough. Symptoms have been gradually worsening despite OTC medications (cold/flu combination products), which have provided minimal relief. He notes his son is currently sick at home with similar symptoms. He performed a home COVID test last night, which was negative. Denies shortness of breath, chest pain, wheezing, nausea, vomiting, or rash. [facility] Medical History (Updated 01/18/25 @ 09:30 by Robyn Ribera NP) Acute respiratory disease Skin lesion of neck Anxiety Depression Surgical History H/O local excision of skin lesion (06/11/22) History of surgery on arm Social History Household Members: Spouse Housing: Apartment Do you presently have visiting nurse or other home services: No Alcohol intake: never Patient Tobacco Use Status: Never used Tobacco e-Cigarette/Vaping Use: Never Used Second Hand Smoke Exposure: No service: No Current occupational status: employed Current occupation: [employer] Cognitive needs: No Hearing needs: No Vision needs: No Review of Systems Const All systems reviewed & are unremarkable except as noted in HPI and below Physical Exam Vital Signs: Last Vital Signs Temp 99.1 F 01/18/25 09:11 Pulse 103 H 01/18/25 09:11 BP 124/82 01/18/25 09:11 Pulse Ox 96 01/18/25 09:11 Oxygen Delivery Method Room Air 01/18/25 09:11 BMI result Body Mass Index 40.3 Const General: no acute distress Nutritional Appearance: obese Orientation/consciousness: patient oriented x3 HEENT Head: Yes normocephalic Ears: external ears normal and TM abnormal bulging bilateral and with fluid behind the TM bilateral; not perforated and not retracted General nose exam: Normal external nose present and Nasal discharge present Face and sinus: Yes sinus tenderness Mouth: moist mucous membranes and Abnormal oral and palatal mucosa present erythematous Throat: Yes uvula midline Resp Effort & Inspection: normal respiratory effort Auscultation: clear to auscultation bilaterally, no crackles, no rales, no rhonchi and no wheezes Cardio Heart sounds: S1 normal heart sound present and S2 normal heart sound present Neuro General: patient oriented x3 Assessment & Plan Assessment & Plan (1) Acute respiratory disease: Code(s): J06.9 - Acute upper respiratory infection, unspecified Plan: Viral Upper Respiratory Infection ? symptoms consistent with viral etiology; sick contacts at home; negative home COVID test but acute viral illness still likely. Ordered SARs. Symptomatic management: Encourage rest, hydration, warm showers/steam. Ordered Z-Pack for 3 days. Worsening fever, SOB, chest pain, severe ear pain, purulent discharge, or symptoms >10?14 days. Follow-up PRN or sooner if symptoms escalate. Orders: Orders SARS-CoV2/FLU/RSV Today J06.9 - Acute upper respiratory infection, unspecified Medications: New azithromycin 500 mg PO DAILY 3 tabs 0RF 3 days J06.9 - Acute upper respiratory infection, unspecified acetaminophen 1,000 mg (2 x 500 mg) PO Q6H PRN 30 caps 0RF pain J06.9 - Acute upper respiratory infection, unspecified pseudoephedrine HCl ER (Sudafed 12 Hour) 120 mg PO Q12H 20 tabs 0RF J06.9 - Acute upper respiratory infection, unspecified benzonatate 200 mg (2 x 100 mg) PO BID 60 caps 0RF cough J06.9 - Acute upper respiratory infection, unspecified Coding Level of Care Code Est Pt Level 4 (82862) Diagnoses Acute respiratory disease J06.9 Time Spent (min) 20
== END 2025-01-18 09:50 | disposition home or self-care (01) ==
PROVIDERS: PCP Physician Assistant; Visit Provider Nurse Practitioner Family
DX: J06.9 Acute upper respiratory infection, unspecified (principal)